=== PATIENT | male | born 1970 | race Caucasian/White ===

== ENCOUNTER 2016-08-30 18:51 | Emergency (ER) | payer OTHER, MEDICAID ==
[2016-08-30 19:11] VITALS: TEMP 98.2; O2SAT 94
[2016-08-30 19:57] LABS: COLOR YELLOW; LEUKOCYTE ESTERASE,URINE NEGATIVE (NEGATIVE); NITRITE,URINE NEGATIVE (NEGATIVE)
[2016-08-30 20:00] LABS: MUCUS TRACE /lpf (NONE-1+)
[2016-08-30 20:04] LABS: % IMMATURE GRANULYOCYTES 0.3 % (0.0-1.1); ABSOLUTE IMMATURE GRANULOCYTES 0.02 10^3/uL (0.00-0.10); ADD DIFF? NO; ADD MORPH? NO; ADD SCAN? NO; ATYPICAL LYMPHOCYTE FLAG 10 (0-99); FRAGMENT RBC FLAG 0 (0-99); HEMATOCRIT 40.6 % (40.0-51.0); HEMOGLOBIN 13.7 g/dL (13.7-17.5); LEFT SHIFT FLG 0 (0-99); LIPEMIA HEMOLYSIS FLAG 80 (0-99); MEAN CELL HEMOGLOBIN 29.9 pg (27.9-34.1); MEAN CELL HEMOGLOBIN CONCENTR. 33.7 g/dL (32.4-36.7); MEAN CELL VOLUME 88.6 fL (81.5-99.8); MEAN PLATELET VOLUME 12.1 fL (8.7-11.7); PLATELET CLUMPS FLAG 40 (0-99); PLATELET COUNT 123 10^3/uL (150-400); RED BLOOD CELL COUNT 4.58 10^6/uL (4.40-6.38); RED CELL DISTRIBUTION WIDTH 13.4 % (11.5-15.2)
--- NOTE | 2016-08-30 20:15 | EDPHY ---
H & P Time Seen by Provider: 08/30/16 19:35 HPI/ROS: HPI Hands and feet swollen. 46-year-old male by private vehicle. He is currently a resident at [facility]. Multiple medical problems and psychiatric problems. Presents the emergency department complaining of swelling in his hands legs feet and body and 26 lb weight gain over the last 2 weeks. No change in medications. He reports that he has had intermittent sharp knife-like frontal headaches over the last month which come on gradually and then go away within about 20 seconds. He denies headache currently. He otherwise denies any other complaints. ROS: Constitutional: No fever, no chills. No weakness. Eyes: No discharge. No changes in vision. ENT: No sore throat. No nasal congestion or rhinorrhea. Respiratory: No cough. No shortness of breath. Cardiac: No chest pain, no palpitations. Gastrointestinal: No abdominal pain, no vomiting, no diarrhea. Genitourinary: No hematuria. No dysuria or increased frequency with urination. Musculoskeletal: No back pain. No neck pain. No myalgias or arthralgias. Skin: No rashes. Neurological: No headache. No focal weakness or altered sensation. Past medical history: Schizoaffective disorder, traumatic brain brain injury, prior suicide attempt, chronic pain with narcotic abuse and dependency, chronic pancreatitis, chronic cholecystitis. Social history: History of alcohol abuse per reports he has not had a drink of alcohol in months since being a resident of [facility]. Smoker. Here by himself. Physical Exam: General Appearance: Alert, no distress. Large man, moderately obese. This patient is responding to questions appropriately and in full sentences. This patient appears well-hydrated and well-nourished. Eyes: Pupils equal and round no pallor or injection. No lid edema, erythema or injection. Respiratory: There are no retractions, lungs are clear to auscultation with good air movement bilaterally. Cardiovascular: Regular rate and rhythm. No murmur. Gastrointestinal: Abdomen is soft and nontender, moderately obese habitus no masses, bowel sounds normal. No focal tenderness at McBurney's point. No Nash sign. Neurological: Motor sensory function is grossly intact. Cranial nerves are normal. Gait is normal. Skin: Warm and dry, no rashes. Musculoskeletal: Neck is supple and nontender. Extremities are symmetrical. Symmetrical nonpitting edema in the bilateral lower extremities and hands. This does not appear to be acute. All joints range without pain or impingement. Psychiatric: No agitation. No depression. Database: EKG: Imaging: Chest x-ray PA and lateral; the cardiac mediastinal silhouette is unremarkable. No evidence of infiltrate or pneumothorax. No acute cardiopulmonary disease process noted. Interpreted by me. Procedures: Emergency department course: IV placed, urine sample obtained. Appropriate blood work sent. Patient has a history of narcotic pain medication addiction and dependency. He of course is asking for pain medications. We will hold these at this time. Laboratory work reviewed. His liver function profile and albumin are normal. He is not spilling protein in his urine. He is not anemic. His chest x-ray does not show any evidence of heart failure. 8:55 p.m., patient re-evaluated. Vital signs have been reviewed. Results of laboratory work urinalysis and chest x-ray discussed with him. I discussed follow-up through his primary care physician for an outpatient echocardiogram. I also discussed consideration of putting him on Lasix. I do not feel this is needed emergently though. He feels comfortable with this plan. Return to emergency department precautions were thoroughly reviewed with him. All of his questions were answered. He was discharged in good condition. Differential Diagnosis: The differential diagnosis on this patient includes but is not limited to anemia , nephrotic syndrome, renal failure, liver failure, obesity secondary to poor diet. This represents a partial list of diagnoses considered. These considerations are based on history, physical exam, past history, reassessment and diagnostic testing. Smoking Status: Heavy smoker Constitutional: Initial Vital Signs Temperature (C) 36.8 C 08/30/16 19:09 Heart Rate 89 08/30/16 19:09 Respiratory Rate 22 H 08/30/16 19:09 Blood Pressure 167/101 H 08/30/16 19:09 O2 Sat (%) 94 08/30/16 19:09 O2 Delivery Mode Room Air Allergies/Adverse Reactions: haloperidol [From Haldol] Allergy (Severe, Verified 08/09/16 14:38) TONGUE SWELLING haloperidol lactate [From Haldol] Allergy (Severe, Verified 08/09/16 14:38) TONGUE SWELLING naproxen Allergy (Severe, Verified 08/09/16 14:38) adhesive tape Allergy (Verified 08/09/16 14:38) ibuprofen [From Motrin] Allergy (Verified 08/09/16 14:38) iodine Allergy (Verified 08/09/16 14:38) lactose Allergy (Verified 08/09/16 14:38) lithium Allergy (Verified 08/09/16 14:38) Home Medications: Medication Instructions Recorded Gabapentin [Neurontin 400 MG (*)] 800 mg PO TID #30 cap 02/08/16 Lipase/Protease/Amylase [Pancreaze 1 cap PO TIDMEAL #30 cap 02/08/16 16.8] Ondansetron Odt [Zofran Odt 4 mg 4 mg PO Q4 PRN #15 tab 02/08/16 (*)] Acetaminophen [Tylenol 325mg (*)] 650 mg PO Q6 PRN 04/03/16 Docusate Sodium [Colace 100 MG (*)] 100 mg PO BID 04/03/16 Cyclobenzaprine 5 mg PO BID 08/09/16 Depakote 750 mg PO HS 08/09/16 Divalproex [Depakote] 500 mg PO DAILY AT 6AM 08/09/16 Hydroxyzine HCl 25 mg PO Q8H PRN 08/09/16 OLANZapine 15 mg PO HS 08/09/16 Pregabalin [Lyrica 50mg (*)] 100 mg PO TID 08/09/16 Zyprexa 5 mg PO DAILY 08/09/16 clonazePAM [klonoPIN (*)] 0.5 mg PO BID 08/09/16 oxyCODONE IR [Oxycodone Ir (*)] 10 mg PO Q6H PRN 08/09/16 Medical Decision Making - Data Points Laboratory Results: Laboratory Results 08/30/16 19:51 08/30/16 19:51 08/30/16 08/30/16 08/30/16 20:30 19:51 19:20 WBC 6.55 10^3/uL (3.80-9.50) RBC 4.58 10^6/uL (4.40-6.38) Hgb 13.7 g/dL (13.7-17.5) Hct 40.6 % (40.0-51.0) MCV 88.6 fL (81.5-99.8) MCH 29.9 pg (27.9-34.1) MCHC 33.7 g/dL (32.4-36.7) RDW 13.4 % (11.5-15.2) Plt Count 123 L 10^3/uL (150-400) MPV 12.1 H fL (8.7-11.7) Neut % (Auto) 62.4 % (39.3-74.2) Lymph % (Auto) 20.9 % (15.0-45.0) [place] % (Auto) 11.9 % (4.5-13.0) Eos % (Auto) 4.0 % (0.6-7.6) Baso % (Auto) 0.5 % (0.3-1.7) Nucleat RBC Rel Count 0.0 % (0.0-0.2) Absolute Neuts (auto) 4.09 10^3/uL (1.70-6.50) Absolute Lymphs (auto) 1.37 10^3/uL (1.00-3.00) Absolute Monos (auto) 0.78 10^3/uL (0.30-0.80) Absolute Eos (auto) 0.26 10^3/uL (0.03-0.40) Absolute Basos (auto) 0.03 10^3/uL (0.02-0.10) Absolute Nucleated RBC 0.00 10^3/uL (0-0.01) Immature Gran % 0.3 % (0.0-1.1) Immature Gran # 0.02 10^3/uL (0.00-0.10) PT 13.0 SEC (12.0-15.0) INR 0.99 (0.83-1.16) APTT 25.0 SEC (23.0-38.0) Sodium 141 mEq/L (134-144) Potassium 4.8 mEq/L (3.5-5.2) Chloride 104 mEq/L (97-110) Carbon Dioxide 27 mEq/l (22-31) Anion Gap 10 mEq/L (8-16) BUN 17 mg/dL (7-23) Creatinine 1.0 mg/dL (0.7-1.3) Estimated GFR > 60 Glucose 93 mg/dL (70-100) Calcium 9.2 mg/dL (8.5-10.4) Total Bilirubin 0.7 mg/dL (0.1-1.4) Conjugated Bilirubin 0.1 mg/dL (0.0-0.5) Unconjugated Bilirubin 0.6 mg/dL (0.0-1.1) AST 61 H IU/L (17-59) ALT 67 IU/L (21-72) Alkaline Phosphatase 47 IU/L (38-126) Total Protein 6.5 g/dL (6.3-8.2) Albumin 3.5 g/dL (3.5-5.0) Urine Color YELLOW Urine Appearance CLEAR Urine pH 7.0 (5.0-7.5) Ur Specific [place] 1.015 (1.002-1.030) Urine Protein NEGATIVE (NEGATIVE) Urine Ketones NEGATIVE (NEGATIVE) Urine Blood NEGATIVE (NEGATIVE) Urine Nitrate NEGATIVE (NEGATIVE) Urine Bilirubin NEGATIVE (NEGATIVE) Urine Urobilinogen NEGATIVE EU (0.2-1.0) Ur Leukocyte Esterase NEGATIVE (NEGATIVE) Urine RBC 1-3 /hpf (0-3) Urine WBC 1-3 /hpf (0-3) Ur Epithelial Cells NONE SEEN /lpf (NONE-1+) Urine Mucus TRACE /lpf (NONE-1+) Ur Culture Indicated? NOT INDICATED (NI) Urine Glucose NEGATIVE (NEGATIVE) Departure - Departure Disposition: Home, Routine, Self-Care Clinical Impression: Recent weight gain, Swollen hands and feet Condition: Good Instructions: Edema (ED) Additional Instructions: Read and follow provided instructions. Follow-up with your primary care physician through [facility] in 1-2 days for re- evaluation. Discuss prescription for Lasix which is a diuretic. Discuss having an outpatient echocardiogram arranged through your primary care physician. Avoid fatty and salty foods. Return to the emergency department for worsening symptoms or other serious concerns. Referrals: Carri Prakash PA [Primary Care Provider] - As per Instructions
[2016-08-30 20:26] LABS: ALANINE AMINOTRANSFERASE 67 IU/L (21-72); ALBUMIN 3.5 g/dL (3.5-5.0); ALKALINE PHOSPHATASE 47 IU/L (38-126); ANION GAP 10 mEq/L (8-16); ASPARTATE AMINOTRANSFERASE 61 IU/L (17-59); BILIRUBIN,TOTAL 0.7 mg/dL (0.1-1.4); BILIRUBIN-CONJUGATED 0.1 mg/dL (0.0-0.5); BILIRUBIN-UNCONJUGATED 0.6 mg/dL (0.0-1.1); CALCIUM 9.2 mg/dL (8.5-10.4); CARBON DIOXIDE 27 mEq/l (22-31); CHLORIDE 104 mEq/L (97-110); GLOMERULAR FILTRATION RATE > 60; GLUCOSE 93 mg/dL (70-100); POTASSIUM 4.8 mEq/L (3.5-5.2); SODIUM 141 mEq/L (134-144); TOTAL PROTEIN 6.5 g/dL (6.3-8.2)
[2016-08-30 20:44] LABS: INR 0.99 (0.83-1.16)
--- NOTE | 2016-08-30 20:50 | DX ---
PA and lateral chest. August 30, 2016. Clinical History: Dyspnea. Comparison Study: April 05, 2016.. Findings: The lungs are clear. No pleural disease identified. Heart size is normal. Visualized osseous structures appear normal. Impression: Normal chest.
[2016-08-30 21:11] VITALS: BP 162/100; PULSE 82; RESP 20
[2016-08-30] MEDS ORDERED: NICOTINE POLACRILEX 2 MG GUM B PRN (21:51)
[2016-08-30] MEDS ORDERED: NICOTINE POLACRILEX 2 MG GUM B ONE (21:52)
== END 2016-08-30 22:36 | disposition home or self-care (01) ==
LOC: EDUNIT#
DX: M79.89 Other specified soft tissue disorders (principal); R63.5 Abnormal weight gain; F17.200 Nicotine dependence, unspecified, uncomplicated

== ENCOUNTER 2016-09-02 19:21 | Emergency (ER) | payer OTHER, MEDICAID ==
[2016-09-02] MEDS ORDERED: LORazepam 1 MG TAB PO ONE (19:36)
[2016-09-02] MEDS ORDERED: LORazepam 1 MG TAB ONE (19:37)
[2016-09-02] MEDS ORDERED: NS 1,000 ML IV ONE (19:48)
[2016-09-02 19:56] LABS: COLOR YELLOW; LEUKOCYTE ESTERASE,URINE NEGATIVE (NEGATIVE); NITRITE,URINE NEGATIVE (NEGATIVE)
--- NOTE | 2016-09-02 19:56 | EDPHY ---
H & P Stated Complaint: SI/HI AFTER MED CHANGES, ALSO C/O OF ABD PAIN AND DIARRHEA Source: Patient, RN/MD Exam Limitations: No limitations - Personal History Current Tetanus Diphtheria and Acellular Pertussis (TDAP): Yes Tetanus Vaccine Date: 2009 - Medical/Surgical History Hx Asthma: No Hx Chronic Respiratory Disease: No Hx Diabetes: No Hx Cardiac Disease: No Hx Renal Disease: No Hx Cirrhosis: No Hx Alcoholism: Yes Hx HIV/AIDS: No Hx Splenectomy or Spleen Trauma: No Other PMH: PMH- Agoraphobia, Bipolar, ADHD, Chronic pain, disc L5-S1, PANCREATITIS,ANXIETY, ETOH ABUSE,OPIOD DEPENDANCE, SCHIZOAFFECTIVE,INSOMNIA, NEUROPATHY,MUSCLE WEAKNESS, MUSCLE SPASM, TRAUMATIC BRAIN INJURY, right ankle repair. Liver failure - Social History Smoking Status: Heavy smoker Time Seen by Provider: 09/02/16 19:30 HPI/ROS: CHIEF COMPLAINT: Suicidal ideation HISTORY OF PRESENT ILLNESS: patient with extensive history of mental health illness, is mostly schizophrenia with paranoid delusions and auditory hallucinations. He, reports his medications "I have been jacked with," and feels that his medications are too low. He says today he told someone at his facility that he wanted to . He told him specifically that he wanted to get a cough kill himself because he is [employer]. He would not give any other details. He denies any taking other medications or drugs. He has no chest pain but does have this ongoing abdominal pain that is acutely worsened recently. No fevers or chills. Some diarrhea. No bloody stools or emesis. Ongoing psychiatric care is from [facility]. Resides in a fdc. No other associated complaints or modifying factors. reports an abnormal CT scan in the past, for which he is awaiting a colonoscopy but he does not know the diagnosis. REVIEW OF SYSTEMS: Ten systems reviewed and are negative unless otherwise noted in the HPI EXAMINATION General Appearance: Alert, no distress , unkempt Head: normocephalic, atraumatic Eyes: Pupils equal and round, no conjunctival pallor or injection, EOMs intact ENT, Mouth: Mucous membranes moist. Uvula midline. No lesions. Neck: Normal inspection, supple, non-tender Respiratory: Lungs are clear to auscultation . No rhonchi wheezing or consolidation Cardiovascular: Regular rate and rhythm Gastrointestinal: Abdomen obese. Soft With general tenderness. no tympany. No rigidity. Guarding in all quadrants. Pain out of proportion to examination Neurological: A&O, nonfocal, Skin: Warm and dry, no rash Extremities: Nontender, no pedal edema Psychiatric: Flat affect. Admits to auditory hallucinations and suicidal ideation. Wants to by getting a cough to kill him. DIFFERENTIAL DIAGNOSES: Including but not limited to Schizophrenia, paranoid delusions, suicidal ideation, abdominal pain, Colitis, diverticulitis MDM: 12:15 a.m. Paranoid schizophrenia with delusions and hallucinations. Suicidal ideation without a definitive plan. Laboratory studies are within normal limits. Was complaining of significant abdominal pain, thus we did obtain a CT scan of the abdomen and pelvis. Radiology deformities completely within normal limits with all structures visualized well. He has been resting comfortably and cooperative although he does exhibit suicidal ideation. He has been cleared for mental health evaluation we are awaiting their evaluation at this. 12:40 a.m. notify the [facility] case filler, Brad, There is recommendation is that we Uphold the mental health hold this time. He is attempting to get placement at a crisis stabilization Center. He will notify me of acceptance should that happen. Patient remains hemodynamically stable in no acute distress. 1:00 a.m. I have re-evaluated this patient. He remains stable and in no acute distress. He is very cooperative and pleasant during conversation. He is asking for Benadryl something to help him sleep and I have declined at this time. I prefer that he remained awake indication he is transferred for evaluation. He respect this decision and accepted without any combative behavior. He is resting comfortably and awaiting placement. 1:55am At this time, we are awaiting placement to [facility]. He remains calm and in no distress. At this time, Dr. Ortiz will assume care of the patient. Please see his note for final disposition. SUPERVISION: Patient was evaluated in conjunction with the supervising physician. Please see their note for details. (Vladimir Lamb) Constitutional: Initial Vital Signs Temperature (C) 36.8 C 09/02/16 19:41 Heart Rate 93 09/02/16 19:41 Respiratory Rate 16 09/02/16 19:41 Blood Pressure 135/80 H 09/02/16 19:41 O2 Sat (%) 92 09/02/16 19:41 O2 Delivery Mode Room Air Allergies/Adverse Reactions: haloperidol [From Haldol] Allergy (Severe, Verified 08/09/16 14:38) TONGUE SWELLING haloperidol lactate [From Haldol] Allergy (Severe, Verified 08/09/16 14:38) TONGUE SWELLING naproxen Allergy (Severe, Verified 08/09/16 14:38) adhesive tape Allergy (Verified 08/09/16 14:38) ibuprofen [From Motrin] Allergy (Verified 08/09/16 14:38) iodine Allergy (Verified 08/09/16 14:38) lactose Allergy (Verified 08/09/16 14:38) lithium Allergy (Verified 08/09/16 14:38) Home Medications: Medication Instructions Recorded Gabapentin [Neurontin 400 MG (*)] 800 mg PO TID #30 cap 02/08/16 Lipase/Protease/Amylase [Pancreaze 1 cap PO TIDMEAL #30 cap 02/08/16 16.8] Ondansetron Odt [Zofran Odt 4 mg 4 mg PO Q4 PRN #15 tab 02/08/16 (*)] Acetaminophen [Tylenol 325mg (*)] 650 mg PO Q6 PRN 04/03/16 Docusate Sodium [Colace 100 MG (*)] 100 mg PO BID 04/03/16 Cyclobenzaprine 5 mg PO BID 08/09/16 Depakote 750 mg PO HS 08/09/16 Divalproex [Depakote] 500 mg PO DAILY AT 6AM 08/09/16 Hydroxyzine HCl 25 mg PO Q8H PRN 08/09/16 OLANZapine 15 mg PO HS 08/09/16 Pregabalin [Lyrica 50mg (*)] 100 mg PO TID 08/09/16 Zyprexa 5 mg PO DAILY 08/09/16 clonazePAM [klonoPIN (*)] 0.5 mg PO BID 08/09/16 oxyCODONE IR [Oxycodone Ir (*)] 10 mg PO Q6H PRN 08/09/16 Medical Decision Making ED Course/Re-evaluation: 707: Patient here with worsening auditory hallucinations paranoia underlying schizophrenia has been evaluated and is pending go to a crisis stabilization unit. No acute events overnight he has been sleeping in the hallway most of the evening. At times he does have screaming behavior with hallucination. Patient signed over to Dr Zavala at 7am Shift change. Pending placement. ( Jose Alberto Ortiz) Other Provider: I assumed care of this patient Dr. Ortiz at 7:00 a.m.. The patient has been cooperative throughout my shift. He has not had any agitation. He has received all of his regularly scheduled medications. At 3:30 p.m. he is sleeping comfortably. Lungs are clear and heart is regular rate and rhythm. When awakened, he has no complaints or requests. Awaiting placement in a psychiatric facility. His care is transferred to Dr. Santos at 4:00 p.m. on September 03, 2016. (Khushboo Zavala) Accepted patient care from Dr. Khushboo Zavala patient has a history of schizophrenia and is currently paranoid and suicidal. He has been medically cleared prior to my arrival and is on a M1 hold. He has been evaluated and is awaiting psychiatric placement. 7:00 p.m. the patient has been re-evaluated by mental health. They would like to lift his hold. He disclosed to them that he simply became angry because they took his marijuana away from him. He denies being paranoid or suicidal. The facility who was caring for him early who will accept him back. He contracts for safety. (Nicho Santos) - Data Points Laboratory Results: Laboratory Results 09/02/16 20:40 09/02/16 20:10 Medications Given: Discontinued Medications Albuterol (Proventil Neb) 3 ml IH EDNOW ONE Stop: 09/03/16 09:48 Last Admin: 09/03/16 09:58 Dose: 3 ml Baclofen (Baclofen) 20 mg PO TID ONE Stop: 09/03/16 08:03 Last Admin: 09/03/16 09:00 Dose: 20 mg Baclofen (Baclofen) 20 mg PO EDNOW ONE Stop: 09/03/16 13:15 Last Admin: 09/03/16 14:26 Dose: 20 mg Clonazepam (Klonopin) 0.5 mg PO BID ONE Stop: 09/03/16 08:03 Last Admin: 09/03/16 09:01 Dose: 0.5 mg Diphenhydramine HCl (Benadryl) 50 mg PO EDNOW ONE Stop: 09/02/16 20:26 Last Admin: 09/02/16 20:29 Dose: 50 mg Hydromorphone HCl (Dilaudid) 1 mg IVP EDNOW ONE Stop: 09/02/16 20:49 Last Admin: 09/02/16 21:00 Dose: 1 mg Sodium Chloride (Ns) 1,000 mls @ 0 mls/hr IV ONCE ONE PRN Reason: Wide Open Stop: 09/02/16 19:49 Last Admin: 09/02/16 21:00 Dose: 1,000 mls Lorazepam (Ativan) 1 mg PO EDNOW ONE Stop: 09/02/16 19:37 Last Admin: 09/02/16 19:41 Dose: 1 mg Olanzapine (Zyprexa) 15 mg PO ONCE ONE Stop: 09/03/16 08:08 Last Admin: 09/03/16 09:01 Dose: Not Given Olanzapine (Zyprexa Zydis) 15 mg PO EDNOW ONE Stop: 09/03/16 09:04 Last Admin: 09/03/16 09:03 Dose: 15 mg Oxycodone HCl (Oxycodone Ir) 10 mg PO QID ONE Stop: 09/03/16 08:35 Last Admin: 09/03/16 09:02 Dose: 10 mg Oxycodone HCl (Oxycontin) 10 mg PO ONCE ONE Stop: 09/03/16 13:15 Last Admin: 09/03/16 14:26 Dose: 10 mg Pregabalin (Lyrica) 100 mg PO EDNOW ONE Stop: 09/03/16 13:16 Last Admin: 09/03/16 14:27 Dose: 100 mg Pregabalin (Lyrica) 100 mg PO EDNOW ONE Stop: 09/03/16 14:01 Last Admin: 09/03/16 14:27 Dose: Not Given Departure - Departure Disposition: Home, Routine, Self-Care Clinical Impression: Polysubstance abuse Schizophrenia Qualifiers: Schizophrenia type: unspecified Qualifier Code: (F20.9) Schizophrenia, unspecified Condition: Good Instructions: Schizophrenia (ED) Referrals: NONE *PRIMARY CARE P,. [Primary Care Provider] - As per Instructions Isabella Ruiz MD [Medical Doctor] - As per Instructions
[2016-09-02] MEDS ORDERED: diphenhydrAMINE 25 MG CAP PO ONE ×2 (20:15→20:25)
[2016-09-02] MEDS ORDERED: HYDROmorphONE/DILAUDID 1 MG/ML SYR ONE (20:43)
[2016-09-02 20:46] LABS: ANION GAP 11 mEq/L (8-16); CALCIUM 8.7 mg/dL (8.5-10.4); CARBON DIOXIDE 28 mEq/l (22-31); CHLORIDE 107 mEq/L (97-110); CREATININE 1.2 mg/dL (0.7-1.3); ETHANOL SERUM < 10 mg/dL (0-10); GLOMERULAR FILTRATION RATE > 60; GLUCOSE 78 mg/dL (70-100); POTASSIUM 4.6 mEq/L (3.5-5.2); SALICYLATE < 1.0 mg/dL (2.0-20.0); SODIUM 146 mEq/L (134-144)
[2016-09-02] MEDS ORDERED: HYDROmorphONE/DILAUDID 1 MG/ML SYR IVP ONE (20:48)
[2016-09-02 20:51] LABS: ABSOLUTE IMMATURE GRANULOCYTES 0.07 10^3/uL (0.00-0.10); ADD DIFF? NO; ADD MORPH? NO; ADD SCAN? NO; ATYPICAL LYMPHOCYTE FLAG 20 (0-99); FRAGMENT RBC FLAG 0 (0-99); HEMATOCRIT 41.1 % (40.0-51.0); LEFT SHIFT FLG 0 (0-99); LIPEMIA HEMOLYSIS FLAG 90 (0-99); MEAN CELL HEMOGLOBIN 30.2 pg (27.9-34.1); MEAN CELL HEMOGLOBIN CONCENTR. 34.1 g/dL (32.4-36.7); MEAN CELL VOLUME 88.8 fL (81.5-99.8); PLATELET CLUMPS FLAG 30 (0-99); PLATELET COUNT 148 10^3/uL (150-400); RED BLOOD CELL COUNT 4.63 10^6/uL (4.40-6.38); RED CELL DISTRIBUTION WIDTH 13.8 % (11.5-15.2)
[2016-09-02] MEDS ORDERED: IOPAMIDOL (ISOVUE-300) 100 ML BTL IV ONE (21:03)
--- NOTE | 2016-09-02 22:17 | CT ---
CT Scan of the Abdomen and Pelvis, With Contrast Indication: Abdominal pain, evaluate for possible small bowel obstruction. Technique: Multidetector CT images of the abdomen and pelvis were obtained. During initial contrast injection the IV malfunctioned, and the study was performed essentially without intravenous contrast . Axial images are obtained at 5-mm intervals and reformatted at 1.5-mm thickness. The examination is reviewed on the workstation at multiple window/level settings. Sagittal and coronal reformations are performed. Dose reduction techniques were utilized for this examination. Comparison: Comparison to previous CT abdomen and pelvis of November 21, 2015. Abdomen Lung bases: Clear, with no infiltrate or atelectasis. No pleural fluid. Liver: Normal. Biliary system: The gallbladder is surgically absent. No biliary ductal dilatation is identified. Spleen: Normal. Pancreas: Normal. Adrenals: Normal. Kidneys: No obstruction or solid masses. There is a trace of contrast seen in the collecting system s bilaterally from the small initial contrast injection. The ureters are normal bilaterally. Abdominal Aorta: Scattered minimal calcified aortic plaque formation is seen, with no aneurysm ident ified. No bowel obstruction, ascites, or retroperitoneal lymphadenopathy. CT Pelvis Findings: A normal appendix is identified. There is no small bowel obstruction. No free air is seen, and there is no free fluid identified. Minimal spinal degenerative changes are noted. Impressions 1. CT scan of the abdomen and pelvis negative for acute abnormality, specifically negative for small bowel obstruction. 2. See above report for additional findings. A preliminary report was called to Vladimir Lamb PA-C, at 2200 hours in the Emergency Department. E:amm
[2016-09-02] MEDS ORDERED: oxyCODONE IR 5 MG TAB ONE (23:44)
[2016-09-03] MEDS ORDERED: BACLOFEN 20 MG TAB PO ONE ×3 (08:02→18:53)
[2016-09-03] MEDS ORDERED: clonazePAM 0.5 MG TAB PO ONE ×3 (08:02→20:09)
[2016-09-03] MEDS ORDERED: hydrOXYzine HCL 25 MG TAB PO PRN (08:02)
[2016-09-03] MEDS ORDERED: OLANZapine 2.5 MG TAB PO ONE (08:07)
[2016-09-03] MEDS ORDERED: OLANZapine DISINTEGR 10 MG TAB ONE (08:28)
[2016-09-03] MEDS ORDERED: OLANZapine DISINTEGR 5 MG TAB ONE (08:29)
[2016-09-03] MEDS ORDERED: oxyCODONE IR 5 MG TAB PO ONE (08:34)
[2016-09-03] MEDS ORDERED: oxyCODONE IR 5 MG TAB ONE ×2 (08:35→19:47)
[2016-09-03] MEDS ORDERED: DIVALPROEX ER 500 MG TAB PO SCH (09:00)
[2016-09-03] MEDS: GABAPENTIN 400 MG CAP PO SCH ×2 (09:01→15:50)
[2016-09-03] MEDS: PREGABALIN 75 MG CAP PO SCH ×2 (09:02→15:50)
[2016-09-03] MEDS ORDERED: OLANZapine DISINTEGR 10 MG TAB PO ONE (09:03)
[2016-09-03 09:06] VITALS: O2SAT 94
[2016-09-03] MEDS ORDERED: ALBUTEROL 3 ML DEYVIAL IH ONE (09:47)
[2016-09-03] MEDS ORDERED: ALBUTEROL 3 ML DEYVIAL ONE (09:48)
[2016-09-03] MEDS ORDERED: PREGABALIN 75 MG CAP PO ONE ×2 (13:15→18:55)
[2016-09-03] MEDS ORDERED: PREGABALIN 50 MG CAP PO ONE (14:00)
[2016-09-03] MEDS ORDERED: GABAPENTIN 300 MG CAP ONE (15:43)
[2016-09-03] MEDS ORDERED: GABAPENTIN 100 MG CAP ONE (15:44)
[2016-09-03 15:58] VITALS: RESP 14
[2016-09-03] MEDS ORDERED: PREGABALIN 25 MG CAP PO SCH (19:30)
[2016-09-03 20:19] VITALS: BP 118/78; PULSE 80; TEMP 97.9
[2016-09-03] MEDS ORDERED: PREGABALIN 50 MG CAP PO SCH (22:00)
[2016-09-04] MEDS ORDERED: LURASIDONE HCL 20 MG TAB PO SCH (08:00)
[2016-09-04] MEDS ORDERED: LURASIDONE HCL 20 MG TAB PO ONE (18:54)
== END 2016-09-03 20:17 | disposition home or self-care (01) ==
LOC: EDUNIT#
DX: F20.9 Schizophrenia, unspecified (principal); F19.10 Other psychoactive substance abuse, uncomplicated; F17.200 Nicotine dependence, unspecified, uncomplicated
CPT/HCPCS: 74176; 96374; 99285; J1170; Q9967; 80305; G0480

== ENCOUNTER 2016-09-18 20:25 | Emergency (ER) | payer OTHER, MEDICAID ==
--- NOTE | 2016-09-18 20:34 | EDPHY ---
[id number], arriving via EMS from [place] complaining of poorly localized abdominal pain onset this morning. He has a history of chronic pain, opioid dependence, and schizophrenia and says he has been refusing his Depakote. He has associated nausea, diarrhea, and reduced appetite since symptom onset this morning. He states this pain is different than previous presentations because "it goes more to my back." He was not cooperative for EMS and refused an IV. REVIEW OF SYSTEMS: Aside from elements discussed in the HPI, a comprehensive 10-point review of systems was reviewed and is negative. PMH: Schizophrenia, TBI, Hepatitis C, neuropathy, anxiety, back pain, opioid dependence SOCIAL HISTORY: Lives at [place], alcohol abuse Prior medical records reviewed including admission 04/03/16 for abdominal pain and ED visit 09/02/16 for similar symptoms. An abdominal CT at that time was negative for anything acute. PHYSICAL EXAM: General:Patient is alert, in no acute distress. ENT:Eyes are normal to inspection. ENT inspection normal. Neck: Normal inspection. Full range of motion. Respiratory:No respiratory distress. Breath sounds normal bilaterally. Cardiovascular: Regular rate and rhythm. Strong peripheral pulses. Normal cap refill. Abdomen:The abdomen is nontender to palpation. There are no peritoneal signs. There are normal bowel sounds. Back: Normal to inspection. No tenderness to palpation. Skin: Normal color. No rash. Warm and dry. Extremities: Normal appearance. Full range of motion. Neuro: Oriented x3. Normal motor function. Normal sensory function. ED Course: Plan for IV, labs including CBC, CHEM, LFT, lipase. UA ordered. 2113: Patient did not want to have anyone attempt to draw blood a 3rd time or wait for discharge and walked out of the department. MDM: This patient is well-known to the ED and returns with complaint of abdominal pain. Shortly after arrival he attempted to leave the department. The patient does not arrive with any paperwork or declaration that he is on a legal hold. He appears to have decisional capacity, so I do not feel that I can restrain him against his will. General Time Seen by Provider: 09/18/16 20:25 Initial Vital Signs: Initial Vital Signs Temperature (C) 36.5 C 09/18/16 20:32 Heart Rate 73 09/18/16 20:32 Respiratory Rate 18 09/18/16 20:32 Blood Pressure 127/81 H 09/18/16 20:32 O2 Sat (%) 92 09/18/16 20:32 O2 Delivery Mode Room Air Allergies/Adverse Reactions: haloperidol [From Haldol] Allergy (Severe, Verified 08/09/16 14:38) TONGUE SWELLING haloperidol lactate [From Haldol] Allergy (Severe, Verified 08/09/16 14:38) TONGUE SWELLING naproxen Allergy (Severe, Verified 08/09/16 14:38) adhesive tape Allergy (Verified 08/09/16 14:38) ibuprofen [From Motrin] Allergy (Verified 08/09/16 14:38) iodine Allergy (Verified 08/09/16 14:38) lactose Allergy (Verified 08/09/16 14:38) lithium Allergy (Verified 08/09/16 14:38) Home Medications: Medication Instructions Recorded Gabapentin [Neurontin 400 MG (*)] 800 mg PO TID #30 cap 02/08/16 Lipase/Protease/Amylase [Pancreaze 1 cap PO TIDMEAL #30 cap 02/08/16 16.8] Ondansetron Odt [Zofran Odt 4 mg 4 mg PO Q4 PRN #15 tab 02/08/16 (*)] Acetaminophen [Tylenol 325mg (*)] 650 mg PO Q6 PRN 04/03/16 Docusate Sodium [Colace 100 MG (*)] 100 mg PO BID 04/03/16 Cyclobenzaprine 5 mg PO BID 08/09/16 Depakote 750 mg PO HS 08/09/16 Divalproex [Depakote] 500 mg PO DAILY AT 6AM 08/09/16 Hydroxyzine HCl 25 mg PO Q8H PRN 08/09/16 OLANZapine 15 mg PO HS 08/09/16 Pregabalin [Lyrica 50mg (*)] 100 mg PO TID 08/09/16 Zyprexa 5 mg PO DAILY 08/09/16 clonazePAM [klonoPIN (*)] 0.5 mg PO BID 08/09/16 oxyCODONE IR [Oxycodone Ir (*)] 10 mg PO Q6H PRN 08/09/16 Departure - Departure Disposition: Against Medical Advice Clinical Impression: Chronic abdominal pain Condition: Good Instructions: Chronic Abdominal Pain (ED) Additional Instructions: Follow up with your primary care provider for symptoms not improved over the next 2-3 days. Referrals: Patient,NotPresent [Unknown] - As per Instructions [facility] [Outside] - As per Instructions Report Scribed for: Spenser Blackburn Report Scribed by: Chante Baird Date of Report: 09/18/16 Time of Report: 20:34 Physician Review and Approval Statement: Portions of this note were transcribed by an ED scribe. I personally performed the history, physical exam, and medical decision making; and confirm the accuracy of the information in the transcribed note.
[2016-09-18 20:35] VITALS: BP 127/81; PULSE 73; RESP 18; TEMP 97.7; O2SAT 92
== END 2016-09-18 21:20 | disposition left against medical advice (07) ==
LOC: EDUNIT#
DX: R10.9 Unspecified abdominal pain (principal); G89.29 Other chronic pain

== ENCOUNTER 2016-11-22 00:16 | Inpatient (IN) | payer OTHER, MEDICAID ==
[2016-11-22] MEDS ORDERED: NS 1,000 ML IV ONE (00:22)
[2016-11-22] MEDS ORDERED: ONDANSETRON 4 MG/2 ML VIAL IVP ONE (00:22)
--- NOTE | 2016-11-22 00:24 | EDPHY ---
H & P Time Seen by Provider: 11/22/16 00:19 HPI/ROS: HPI The patient presents brought in by ambulance from [place], for left upper quadrant abdominal pain which began earlier this evening, started slowly and got progressively worse, is currently rated at 8/10. It is associated with loose bowel movements and some nausea. It feels like his prior episodes of pancreatitis. Upon review of records, he has been here multiple times for this and has had a normal CT scan within the last few months. Last time he was seen in September he left from the emergency room prior to lab testing being performed. He is status post cholecystectomy and has stopped taking his Depakote because of concern that this was causing his recurrent episodes of pancreatitis. REVIEW OF SYSTEMS Constitutional: No fever, no chills. Eyes: No discharge. ENT: No sore throat. Cardiovascular: No chest pain, no palpitations. Respiratory: No cough, no shortness of breath. Gastrointestinal: See HPI Genitourinary: No hematuria. Musculoskeletal: No back pain. Skin: No rashes. Neurological: No headache. PMHx: History of pancreatitis, status post cholecystectomy Soc Hx: History of alcohol abuse PHYSICAL General Appearance: Alert, no distress Eyes: Pupils equal and round no pallor or injection ENT, Mouth: Mucous membranes moist Respiratory: There are no retractions, lungs are clear to auscultation Cardiovascular: Regular rate and rhythm Gastrointestinal: Abdomen is soft with tenderness in the left upper quadrant, no masses, bowel sounds normal Neurological: A&O, moves all extremities Skin: Warm and dry, no rashes Musculoskeletal: Neck is supple non tender Extremities: symmetrical, full range of motion Psychiatric: Patient is oriented X 3, there is no agitation Source: Patient, EMS - Personal History Tetanus Vaccine Date: 2009 - Medical/Surgical History Hx Asthma: No Hx Chronic Respiratory Disease: No Hx Diabetes: No Hx Cardiac Disease: No Hx Renal Disease: No Hx Cirrhosis: No Hx Alcoholism: Yes Hx HIV/AIDS: No Hx Splenectomy or Spleen Trauma: No Other PMH: PMH- Agoraphobia, Bipolar, ADHD, Chronic pain, disc L5-S1, PANCREATITIS,ANXIETY, ETOH ABUSE,OPIOD DEPENDANCE, SCHIZOAFFECTIVE,INSOMNIA, NEUROPATHY,MUSCLE WEAKNESS, MUSCLE SPASM, TRAUMATIC BRAIN INJURY, right ankle repair. Liver failure - Social History Smoking Status: Heavy smoker Constitutional: Initial Vital Signs Temperature (C) 36.6 C 11/22/16 00:23 Heart Rate 80 11/22/16 00:23 Respiratory Rate 16 11/22/16 00:23 Blood Pressure 142/73 H 11/22/16 00:23 O2 Sat (%) 96 11/22/16 00:23 O2 Delivery Mode Nasal Cannula O2 (L/minute) 2 Allergies/Adverse Reactions: haloperidol lactate [From Haldol] Allergy (Severe, Verified 11/22/16 00:22) TONGUE SWELLING naproxen Allergy (Severe, Verified 11/22/16 00:22) adhesive tape Allergy (Verified 11/22/16 00:22) ibuprofen [From Motrin] Allergy (Verified 11/22/16 00:22) iodine Allergy (Verified 11/22/16 00:22) lactose Allergy (Verified 11/22/16 00:22) lithium Allergy (Verified 11/22/16 00:22) Home Medications: Medication Instructions Recorded Gabapentin [Neurontin 400 MG (*)] 800 mg PO TID #30 cap 02/08/16 Lipase/Protease/Amylase [Pancreaze 1 cap PO TIDMEAL #30 cap 02/08/16 16.8] Ondansetron Odt [Zofran Odt 4 mg 4 mg PO Q4 PRN #15 tab 02/08/16 (*)] Acetaminophen [Tylenol 325mg (*)] 650 mg PO Q6 PRN 04/03/16 Docusate Sodium [Colace 100 MG (*)] 100 mg PO BID 04/03/16 Cyclobenzaprine 5 mg PO BID 08/09/16 Depakote 750 mg PO HS 08/09/16 Divalproex [Depakote] 500 mg PO DAILY AT 6AM 08/09/16 Hydroxyzine HCl 25 mg PO Q8H PRN 08/09/16 OLANZapine 15 mg PO HS 08/09/16 Pregabalin [Lyrica 50mg (*)] 100 mg PO TID 08/09/16 Zyprexa 5 mg PO DAILY 08/09/16 clonazePAM [klonoPIN (*)] 0.5 mg PO BID 08/09/16 oxyCODONE IR [Oxycodone Ir (*)] 10 mg PO Q6H PRN 08/09/16 Ondansetron Odt [Zofran Odt 4 mg 4 mg PO Q4 PRN #10 tab 11/22/16 (*)] Medical Decision Making - Diagnostics Imaging: CT abdomen pelvis with IV contrast demonstrates some inflammatory changes at the head of the pancreas, discussed Dr. Abrams of Radiology. Differential Diagnosis: This is a 46-year-old man with past psychiatric history, also history of pancreatitis, status post cholecystectomy who presents brought in by ambulance for abdominal pain which started tonight. It feels like his prior episodes of pancreatitis, it is unclear what the precipitating factor is here. He does have a history of medication seeking behavior. Differential diagnosis includes acute pancreatitis, gastroenteritis, opiate withdrawal. In the emergency room patient was given IV fluids, famotidine, Toradol, ketamine with marginal improvement in his symptoms. Labs were checked and did show elevated lipase, remainder of labs were normal. Because of ongoing pain, patient did not feel comfortable going home. I plan to admit him to the hospitalist service and have discussed the case with Dr. Mona Corea. I have explained to the patient that we cannot give him ongoing opiate medications and he is okay with this. I have ordered a CT scan of his abdomen. - Data Points Laboratory Results: Laboratory Results 11/22/16 00:40 11/22/16 00:40 11/22/16 11/22/16 00:40 00:40 WBC 6.39 10^3/uL 10^3/uL (3.80-9.50) RBC 5.57 10^6/uL 10^6/uL (4.40-6.38) Hgb 16.1 g/dL g/dL (13.7-17.5) Hct 48.2 % % (40.0-51.0) MCV 86.5 fL fL (81.5-99.8) MCH 28.9 pg pg (27.9-34.1) MCHC 33.4 g/dL g/dL (32.4-36.7) RDW 13.2 % % (11.5-15.2) Plt Count 124 10^3/uL L 10^3/uL (150-400) MPV 12.0 fL H fL (8.7-11.7) Neut % (Auto) 52.2 % % (39.3-74.2) Lymph % (Auto) 36.0 % % (15.0-45.0) [place] % (Auto) 7.2 % % (4.5-13.0) Eos % (Auto) 3.9 % % (0.6-7.6) Baso % (Auto) 0.5 % % (0.3-1.7) Nucleat RBC Rel Count 0.0 % % (0.0-0.2) Absolute Neuts (auto) 3.34 10^3/uL 10^3/uL (1.70-6.50) Absolute Lymphs (auto) 2.30 10^3/uL 10^3/uL (1.00-3.00) Absolute Monos (auto) 0.46 10^3/uL 10^3/uL (0.30-0.80) Absolute Eos (auto) 0.25 10^3/uL 10^3/uL (0.03-0.40) Absolute Basos (auto) 0.03 10^3/uL 10^3/uL (0.02-0.10) Absolute Nucleated RBC 0.00 10^3/uL 10^3/uL (0-0.01) Immature Gran % 0.2 % % (0.0-1.1) Immature Gran # 0.01 10^3/uL 10^3/uL (0.00-0.10) Sodium 142 mEq/L mEq/L (134-144) Potassium 4.5 mEq/L mEq/L (3.5-5.2) Chloride 105 mEq/L mEq/L (97-110) Carbon Dioxide 25 mEq/l mEq/l (22-31) Anion Gap 12 mEq/L mEq/L (8-16) BUN 20 mg/dL mg/dL (7-23) Creatinine 1.3 mg/dL mg/dL (0.7-1.3) Estimated GFR 60 Glucose 88 mg/dL mg/dL (70-100) Calcium 9.8 mg/dL mg/dL (8.5-10.4) Total Bilirubin 1.0 mg/dL mg/dL (0.1-1.4) Conjugated Bilirubin 0.5 mg/dL mg/dL (0.0-0.5) Unconjugated Bilirubin 0.5 mg/dL mg/dL (0.0-1.1) AST 24 IU/L IU/L (17-59) ALT 31 IU/L IU/L (21-72) Alkaline Phosphatase 66 IU/L IU/L (38-126) Total Protein 7.6 g/dL g/dL (6.3-8.2) Albumin 4.6 g/dL g/dL (3.5-5.0) Lipase 1155.0 IU/L H IU/L (23-300) Medications Given: Discontinued Medications Diphenhydramine HCl (Benadryl Injection) 25 mg IVP EDNOW ONE Stop: 11/22/16 04:58 Last Admin: 11/22/16 05:04 Dose: 25 mg Famotidine (Pepcid) 20 mg IVP EDNOW ONE Stop: 11/22/16 01:46 Last Admin: 11/22/16 01:45 Dose: 20 mg Fentanyl (Sublimaze) 100 mcg IVP EDNOW ONE Stop: 11/22/16 04:19 Last Admin: 11/22/16 04:20 Dose: 100 mcg Sodium Chloride (Ns) 1,000 mls @ 0 mls/hr IV ONCE ONE PRN Reason: Wide Open Stop: 11/22/16 00:23 Last Admin: 11/22/16 00:54 Dose: 1,000 mls Ketamine HCl (Ketamine) 10 mg IVP EDNOW ONE Stop: 11/22/16 01:01 Last Admin: 11/22/16 01:00 Dose: 10 mg Ketamine HCl (Ketamine) 10 mg IVP EDNOW ONE Stop: 11/22/16 01:25 Last Admin: 11/22/16 01:31 Dose: 10 mg Ketamine HCl (Ketamine) 10 mg IVP EDNOW ONE Stop: 11/22/16 02:41 Last Admin: 11/22/16 02:45 Dose: 10 mg Ondansetron HCl (Zofran) 4 mg IVP EDNOW ONE Stop: 11/22/16 00:23 Last Admin: 11/22/16 00:54 Dose: 4 mg Departure - Departure Disposition: [facility] Inpatient Acute Clinical Impression: Pancreatitis, acute Qualifiers: Pancreatitis type: other Acute pancreatitis complication: unspecified Qualified Code(s): K85.80 - Other acute pancreatitis without necrosis or infection Condition: Good
[2016-11-22] MEDS ORDERED: KETAMINE 100 MG/10 ML SYR IVP ONE ×2 (01:00→01:06)
[2016-11-22 01:07] LABS: % IMMATURE GRANULYOCYTES 0.2 % (0.0-1.1); ABSOLUTE IMMATURE GRANULOCYTES 0.01 10^3/uL (0.00-0.10); ADD DIFF? NO; ADD MORPH? NO; ADD SCAN? NO; ALANINE AMINOTRANSFERASE 31 IU/L (21-72); ALBUMIN 4.6 g/dL (3.5-5.0); ALKALINE PHOSPHATASE 66 IU/L (38-126); ANION GAP 12 mEq/L (8-16); ASPARTATE AMINOTRANSFERASE 24 IU/L (17-59); ATYPICAL LYMPHOCYTE FLAG 0 (0-99); BILIRUBIN-CONJUGATED 0.5 mg/dL (0.0-0.5); BILIRUBIN-UNCONJUGATED 0.5 mg/dL (0.0-1.1); CALCIUM 9.8 mg/dL (8.5-10.4); CARBON DIOXIDE 25 mEq/l (22-31); CHLORIDE 105 mEq/L (97-110); CREATININE 1.3 mg/dL (0.7-1.3); FRAGMENT RBC FLAG 0 (0-99); GLOMERULAR FILTRATION RATE 60; GLUCOSE 88 mg/dL (70-100); HEMATOCRIT 48.2 % (40.0-51.0); HEMOGLOBIN 16.1 g/dL (13.7-17.5); LEFT SHIFT FLG 0 (0-99); LIPEMIA HEMOLYSIS FLAG 80 (0-99); MEAN CELL HEMOGLOBIN 28.9 pg (27.9-34.1); MEAN CELL HEMOGLOBIN CONCENTR. 33.4 g/dL (32.4-36.7); MEAN CELL VOLUME 86.5 fL (81.5-99.8); PLATELET CLUMPS FLAG 10 (0-99); PLATELET COUNT 124 10^3/uL (150-400); POTASSIUM 4.5 mEq/L (3.5-5.2); RED BLOOD CELL COUNT 5.57 10^6/uL (4.40-6.38); RED CELL DISTRIBUTION WIDTH 13.2 % (11.5-15.2); SODIUM 142 mEq/L (134-144); TOTAL PROTEIN 7.6 g/dL (6.3-8.2)
[2016-11-22] MEDS ORDERED: KETAMINE 500 MG/10 ML VIAL IVP ONE ×2 (01:24→02:40)
[2016-11-22] MEDS ORDERED: FAMOTIDINE 20 MG/2 ML SDV ONE (01:41)
[2016-11-22] MEDS ORDERED: FAMOTIDINE 20 MG/2 ML SDV IVP ONE (01:45)
[2016-11-22] MEDS ORDERED: fentaNYL 100 MCG/2 ML INJ ONE (04:16)
[2016-11-22] MEDS ORDERED: fentaNYL 100 MCG/2 ML INJ IVP ONE (04:18)
[2016-11-22] MEDS ORDERED: IOPAMIDOL (ISOVUE-300) 100 ML BTL IV ONE ×2 (04:50→04:59)
[2016-11-22] MEDS: NS 1,000 ML IV SCH ×2 (06:21→23:59)
--- NOTE | 2016-11-22 07:02 | GHP ---
[f rep st] HISTORY AND PHYSICAL DATE OF ADMISSION: 11/22/2016 CHIEF COMPLAINT: Left upper quadrant pain. HISTORY: The patient is a 46-year-old male who presents with severe left upper quadrant pain. This started last night around dinner and has steadily worsened, now an 8/10. He describes it as sharp, worse with eating, radiates to his back. It feels like his previous episodes of pancreatitis. He has had nausea and loose stool. PAST MEDICAL HISTORY: 1. Previous bouts of acute pancreatitis eventually leading to a cholecystectomy done last March, [facility] revealed a severely inflamed gallbladder with extensive adhesions to the colon, status post lap aroscopic cholecystectomy. 2. Chronic abdominal pain with extreme narcotic-seeking behavior. 3. Personality disorder. He was previously diagnosed with schizoaffective disorder and bipolar, ho jayce, per Dr. Apodaca on a recent inpatient psychiatric stay, she did not feel that he had these diagnoses and instead felt this was all malingering for narcotics, as well as an underlying personal ity disorder including histrionic borderline antisocial. 4. Traumatic brain injury. MEDICATIONS: Medication reconciliation from [facility] is pending. ALLERGIES: Haldol, adhesives, NSAIDs, iodine, lithium. SOCIAL HISTORY: He is a smoker. No alcohol. He lives at [facility]. Drugs in the past, but not c urrently. REVIEW OF SYSTEMS: Complete review of systems obtained. Review of systems is negative regarding co nstitutional, HEENT, GI, pulmonary, cardiovascular, , hematology, skin, musculoskeletal, endocrine , psych, except for positives and negatives as under HPI. FAMILY HISTORY: Reviewed, noncontributory to presenting complaint. PHYSICAL EXAMINATION: GENERAL: Well-developed, well-nourished male, in no acute distress. VITAL S IGNS: Temperature is 36.7, pulse 74, blood pressure 143/74, saturating 96% on room air. EYES: Abeba l conjunctivae. Pupils equal, reactive to light. ENT: Normal ears and nose. Hearing intact. Nor mal lips and teeth. Oropharynx moist. NECK: Trachea midline. No thyromegaly. CHEST: Normal res piratory effort. LUNGS: Clear to auscultation bilaterally. CARDIOVASCULAR: Regular rhythm. No m urmur. No lower extremity edema. ABDOMEN: Soft, quite tender in the left upper quadrant without r ebound or guarding. No hepatosplenomegaly. SKIN: Warm, dry, intact without rash. MUSCULOSKELETAL : No cyanosis or clubbing. Strength 5/5 upper and lower extremities. NEUROLOGIC: Cranial nerves in tact. Normal sensation to light touch. PSYCH: Alert and oriented x3. Normal mood and affect. No rmal judgment and normal memory. LABORATORY DATA: White count 6.39, hematocrit 48.2, platelets 124. Sodium 142, potassium 4.5, chlo ride 105, bicarb 25, BUN 20, creatinine 1.3, glucose 88. LFTs are negative. Lipase is 1133. This case was discussed with Dr. Fowler, emergency room physician. She did try an extended observa tion in the emergency room, but was unable to get him to go back to [facility]. CT scan of the abdo men and pelvis shows some possible stranding at the head of the pancreas. ASSESSMENT AND PLAN: 1. Left upper quadrant pain. He does have a mildly elevated lipase and some subtle stranding at th e head of his pancreas, so he may have an episode of recurrent mild pancreatitis. He does not drink alcohol. He did have a very significant chronic cholecystitis with severe inflammation found at [facility] with extensive adhesions. So I suspect he may have some residual anatomic changes that may le ad to some intermittent pancreatitis. With this, however, his LFTs are completely normal. So, I do not see any benefit of further imaging. This is very difficult as it is superimposed on a backgrou nd of chronic abdominal pain and narcotic-seeking behavior. Interestingly, however, he has not been readmitted to the hospital since he had this gallbladder taken out last March. Will start him on IV morphine. However, would rapidly deescalate away from narcotics as he improves. 2. Personality disorder. Need to clarify his medication regimen from [facility] once med reconcili ation is complete. Depakote was discontinued as there are case reports of pancreatitis with this ga dication. 3. Code status full. 4. Admission status: Will admit to observation as I anticipate rapid improvement from his very mild pancreatitis. 5. Deep vein thrombosis prophylaxis. He is high risk. Will place him on subcu Lovenox. /[id number]/MODL
[2016-11-22] MEDS: NICOTINE 21 MG/24 HR PATCH TD SCH (07:54)
[2016-11-22] MEDS: oxyCODONE IR 5 MG TAB PO PRN ×2 (07:54→12:17)
[2016-11-22] MEDS: ENOXAPARIN 40 MG/0.4 ML SYR SC SCH (07:54)
[2016-11-22] MEDS ORDERED: ALTEPLASE 2 MG VIAL IVP PRN (12:11)
[2016-11-22] MEDS ORDERED: morphINE 10 MG/0.5 ML UDSYR PO ONE (13:08)
[2016-11-22] MEDS ORDERED: HYDROmorphONE/DILAUDID 1 MG/ML SYR IVP PRN (13:11)
[2016-11-22] MEDS: BECLOMETHASONE QVAR 80 MDI IH SCH ×2 (13:36→20:31)
[2016-11-22] MEDS ORDERED: LORazepam 1 MG/0.5 ML UDSYR PO PRN (13:36)
--- NOTE | 2016-11-22 15:45 | HOSPPROG ---
Hospitalist Progress Note Assessment/Plan: # acute pancreatitis- confirmed on CT imaging at admission patient with epigastric pain- lipase 1155 with recent complicated history of cholelithiasis and cholecystectomy oxygen saturations 90% on room air - NPO - IV fluids - IV pain medication - consider ultrasound imaging for possible retained stone # complicated access- extensive time spent trying to establish IV access for this patient- unsuccessfully - PICC line ordered - will use Roxanol and Ativan liquid p.r.n. until axis re-established # personality disorder- patient on many complicated add depressive/sedating medications - holding p. o. meds currently but need to carefully review list - use IV Ativan to avoid benzodiazepine withdrawal # prophylaxis Lovenox # diet NPO secondary to pancreatitis # disposition greater than 2 midnights as the patient is presenting with acute pancreatitis requiring IV pain medications and IV fluids I have discussed case with the RN will use Roxanol and Ativan liquid temp early until PICC established Subjective: terrible pain Objective: Vital Signs Temp Pulse Resp BP Pulse Ox 36.8 C 47 L 16 100/53 L 90 L 11/22/16 12:55 11/22/16 12:55 11/22/16 12:55 11/22/16 12:55 11/22/16 12:55 11/21/16 11/22/16 11/23/16 05:59 05:59 05:59 Intake Total 1000 Output Total 400 Balance 1000 -400 - Physical Exam Constitutional: chronically ill appearing, unkempt Eyes: anicteric sclera Ears, Nose, Mouth, Throat: dry mucous membranes Cardiovascular: regular rate and rhythym Respiratory: no respiratory distress, no rales or rhonchi Gastrointestinal: normoactive bowel sounds, tenderness Genitourinary: no bladder fullness Skin: warm, normal color Musculoskeletal: No asymmetric calves Neurologic: No AAOx3 Psychiatric: depressed Lymph, Heme, Immunologic: no cervical LAD ICD10 Worksheet Patient Problems: Problems Problem Status Onset Pancreatitis, acute Acute Severe depressed bipolar I disorder without psychotic features Active Abdominal pain Acute Hypoventilation Acute Hypoxia Acute Opioid dependence Acute
[2016-11-22] MEDS: LORazepam 2 MG/ML INJ IVP PRN ×2 (17:56→22:11)
[2016-11-22] MEDS: HYDROmorphONE/DILAUDID 1 MG/ML SYR IVP PRN ×3 (18:59→23:53)
[2016-11-23] MEDS: HYDROmorphONE/DILAUDID 1 MG/ML SYR IVP PRN ×10 (02:16→23:05)
[2016-11-23] MEDS: BECLOMETHASONE QVAR 80 MDI IH SCH ×2 (05:01→19:48)
[2016-11-23] MEDS: ONDANSETRON 4 MG/2 ML VIAL IVP PRN ×4 (05:41→19:49)
[2016-11-23 05:42] LABS: HEMATOCRIT 46.6 % (40.0-51.0); HEMOGLOBIN 15.2 g/dL (13.7-17.5); MEAN CELL HEMOGLOBIN 28.1 pg (27.9-34.1); MEAN CELL HEMOGLOBIN CONCENTR. 32.6 g/dL (32.4-36.7); MEAN CELL VOLUME 86.3 fL (81.5-99.8); RED BLOOD CELL COUNT 5.4 10^6/uL (4.40-6.38); RED CELL DISTRIBUTION WIDTH 13.2 % (11.5-15.2)
[2016-11-23 06:06] LABS: ANION GAP 7 mEq/L (8-16); CALCIUM 8.7 mg/dL (8.5-10.4); CARBON DIOXIDE 27 mEq/l (22-31); CHLORIDE 108 mEq/L (97-110); GLOMERULAR FILTRATION RATE > 60; GLUCOSE 76 mg/dL (70-100); POTASSIUM 4.4 mEq/L (3.5-5.2); SODIUM 142 mEq/L (134-144)
[2016-11-23] MEDS: NICOTINE 21 MG/24 HR PATCH TD SCH (07:48)
[2016-11-23] MEDS: ENOXAPARIN 40 MG/0.4 ML SYR SC SCH (07:49)
[2016-11-23] MEDS: LORazepam 2 MG/ML INJ IVP PRN (08:41)
[2016-11-23] MEDS ORDERED: LURASIDONE HCL 60 MG PO SCH (10:00)
--- NOTE | 2016-11-23 10:04 | HOSPPROG ---
Hospitalist Progress Note Assessment/Plan: # Acute pancreatitis- CT abdomen (personally reviewed and interpreted) mild pancreatitis at head of pancreas- lipase 1155 - wbc normal with recent complicated history of cholelithiasis and cholecystectomy oxygen saturations 92% on 1L - pain improved this am - advance diet diet to clears - IV fluids until taking adequate PO - transition IV pain medication to PO # complicated access- extensive time spent trying to establish IV access for this patient- unsuccessfully - PICC line ordered - will use Roxanol and Ativan liquid p.r.n. until axis re-established # personality disorder- will restart PO meds today with advanced diet # prophylaxis- Lovenox # diet- advance today # disposition greater than 2 midnights as the patient is presenting with acute pancreatitis requiring IV pain medications and IV fluids I have discussed case with the RN we will work on transitioning to PO diet and meds today with dispo tomorrow as goal Subjective: pain improved Objective: Vital Signs Temp Pulse Resp BP Pulse Ox 36.7 C 56 L 18 109/68 92 11/23/16 07:59 11/23/16 07:59 11/23/16 07:59 11/23/16 07:59 11/23/16 07:59 Laboratory Results 11/23/16 05:25 11/23/16 05:25 11/22/16 11/23/16 11/24/16 05:59 05:59 05:59 Intake Total 1000 1850 Output Total 1300 Balance 1000 550 - Physical Exam Constitutional: appears nourished Eyes: anicteric sclera Ears, Nose, Mouth, Throat: dry mucous membranes Cardiovascular: regular rate and rhythym Respiratory: no respiratory distress, no rales or rhonchi Gastrointestinal: normoactive bowel sounds, tenderness, No guarding, No rebound Genitourinary: no bladder fullness Skin: warm, normal color Musculoskeletal: No asymmetric calves Neurologic: AAOx3 Psychiatric: agitated Lymph, Heme, Immunologic: no cervical LAD ICD10 Worksheet Patient Problems: Problems Problem Status Onset Pancreatitis, acute Acute Severe depressed bipolar I disorder without psychotic features Active Abdominal pain Acute Hypoventilation Acute Hypoxia Acute Opioid dependence Acute
[2016-11-23] MEDS: clonazePAM 1 MG TAB PO SCH ×2 (10:21→19:49)
[2016-11-23] MEDS: FLUoxetine 10 MG CAP PO SCH (10:21)
[2016-11-23] MEDS: LURASIDONE HCL 40 MG TAB PO SCH (10:22)
[2016-11-23] MEDS: oxyCODONE IR 5 MG TAB PO PRN ×3 (10:24→19:50)
[2016-11-23] MEDS: ACETAMINOPHEN 325 MG TAB PO PRN ×2 (11:57→21:16)
[2016-11-23] MEDS: NS 1,000 ML IV SCH (18:38)
[2016-11-23] MEDS ORDERED: CARISOPRODOL 350 MG TAB PO SCH (21:00)
[2016-11-24] MEDS: oxyCODONE IR 5 MG TAB PO PRN ×4 (01:02→16:24)
[2016-11-24 03:45] VITALS: O2SAT 94
[2016-11-24] MEDS: HYDROmorphONE/DILAUDID 1 MG/ML SYR IVP PRN ×3 (03:52→11:25)
[2016-11-24] MEDS: ACETAMINOPHEN 325 MG TAB PO PRN ×4 (04:00→16:24)
[2016-11-24 04:26] LABS: ANION GAP 6 mEq/L (8-16); CALCIUM 8.9 mg/dL (8.5-10.4); CARBON DIOXIDE 29 mEq/l (22-31); CHLORIDE 106 mEq/L (97-110); GLOMERULAR FILTRATION RATE > 60; GLUCOSE 82 mg/dL (70-100); POTASSIUM 4.4 mEq/L (3.5-5.2); SODIUM 141 mEq/L (134-144)
[2016-11-24] MEDS: NS 1,000 ML IV SCH (05:20)
[2016-11-24] MEDS: BECLOMETHASONE QVAR 80 MDI IH SCH ×2 (05:20→16:51)
[2016-11-24] MEDS: ONDANSETRON DISINTEGRATING 4 MG TAB PO PRN ×2 (07:56→16:02)
[2016-11-24] MEDS: ENOXAPARIN 40 MG/0.4 ML SYR SC SCH (08:35)
[2016-11-24] MEDS: LURASIDONE HCL 40 MG TAB PO SCH (08:36)
[2016-11-24] MEDS: FLUoxetine 10 MG CAP PO SCH (08:36)
[2016-11-24] MEDS: clonazePAM 1 MG TAB PO SCH (08:36)
[2016-11-24] MEDS: NICOTINE 21 MG/24 HR PATCH TD SCH (08:38)
[2016-11-24 08:58] VITALS: BP 103/71; PULSE 57; RESP 10; TEMP 97.8
--- NOTE | 2016-11-24 13:25 | PDIAF ---
- Diagnosis Diagnosis: pancreatitis; personality disorder; chronic pain Code Status: Full Code - Medication Management Discharge Medications: Medications to Continue on Transfer Beclomethasone Qvar 80 [Qvar 80 (*)] 1 puffs IH BIDI 08/09/16 [Last Taken ] Carisoprodol [Soma (*)] 350 mg PO HS 08/09/16 [Last Taken 11/21/16] FLUoxetine [Prozac 10 MG (*)] 10 mg PO DAILY 08/09/16 [Last Taken 11/21/16] Lurasidone HCl [Latuda] 60 mg PO DAILY 08/09/16 [Last Taken 11/21/16] clonazePAM [klonoPIN (*)] 1 mg PO BID 08/09/16 [Last Taken 11/21/16 21:00] Ondansetron Odt [Zofran Odt 4 mg (*)] 4 mg PO Q4 PRN #10 tab 11/22/16 [Last Taken Unknown] Nicotine [Nicoderm Cq 21 mg (*)] 21 mg TD DAILY #0 patch 11/24/16 [Last Taken Unknown] Ondansetron Odt [Zofran Odt 4 mg (*)] 4 mg PO Q4 PRN #0 tab 11/24/16 [Last Taken Unknown] oxyCODONE HCL [Oxycontin] 20 mg PO BID 11/24/16 [Last Taken Unknown] Discharge Medications: Refer to the Discharge Home Medication list for PRN reason. - Orders Services needed: Registered Nurse, Certified Overnight Houseperson, Master Substation Electrician Diet Recommendation: low fat Diet Texture: Regular Texture Diet - Follow Up Care Current Providers and Referrals: Destinee Pratt MD [Primary Care Provider] - As per Instructions
--- NOTE | 2016-11-24 13:28 | PDDCSUM ---
Discharge Summary Discharge Summary: DISCHARGE DIAGNOSES: -acute pancreatitis -prior history of gallstone pancreatitis and complicated cholecystectomy -history of personality disorder -History of chronic abdominal pain with chronic daily prescribed narcotic use; past history of significant narcotic abuse and apparent drug-seeking behaviors HOSPITAL COURSE SUMMARY: The patient presented with typical upper abdominal pain tenderness and elevated lipase. There were no signs of any complications of his pancreatitis and no complications developed while he was here. He was treated with bowel rest IV fluids and pain management. He recovered very nicely at this time is eating soups and other soft foods without difficulty. There is no fever no sign of infection. He is stable for discharge from hospital transfer back to [facility]. MEDICATION CHANGES: Addition of Zofran for p.r.n. use FOLLOW-UP PLAN: With his primary care physician as needed Greater than 35 minutes bedside and care coordination time today
== END 2016-11-24 17:20 | DRG 440 ==
LOC: EDUNIT# → F1N 06:02 → OBSVTOIN 15:39
PROVIDERS: ADMIT Internal Medicine; ATTEND Internal Medicine
PROC: 02HV33Z Insertion of Infusion Device into Superior Vena Cava, Percutaneous Approach (ICD-10-PCS; principal; 2016-11-22)
DX: K85.90 Acute pancreatitis without necrosis or infection, unspecified (principal); F60.9 Personality disorder, unspecified; Z72.0 Tobacco use; Z87.820 Personal history of traumatic brain injury
CPT/HCPCS: 96374; C1751; J1170; J1200; J1650; J2060; J2405; J3010; Q9967

== ENCOUNTER 2017-01-28 14:17 | Emergency (ER) | payer OTHER, MEDICAID ==
--- NOTE | 2017-01-28 14:38 | EDPHY ---
H & P Time Seen by Provider: 01/28/17 14:21 HPI/ROS: Chief complaint. Abdominal pain HPI. 45-year-old male with history of pancreatitis here by EMS with abdominal pain for 4 days. He describes upper mid abdominal pain described as aching and worse with eating. Radiation to his back. Nausea and vomiting. No diarrhea. His symptoms are worse with eating. Similar to previous pancreatitis. Denies alcohol. Apparently the thought was that he had gallstone pancreatitis and he had a cholecystectomy 6 months ago. However he had a episode of pancreatitis November 2016. Apparently labs were drawn at [place] where the patient lives in his lipase was elevated. No chest discomfort or shortness of breath. No fever. ROS Constitutional. no fever/chills, no weakness Eyes. no problems with vision ENT. no sore throat, no nasal drainage Cardiovascular. no chest pain Respiratory. no shortness of breath, no cough Abdominal. Abdominal pain with nausea and vomiting . no problems urinating MS. no calf pain/swelling, no neck/back pain, no joint pain Skin. no rash Lymph. no swollen glands Neuro. no headache, no dizziness, no difficulty walking or with speech Past Medical/Surgical History: Past medical history seen for schizoaffective disorder, TBI, hep C, neuropathy, anxiety, cholecystectomy, pancreatitis, chronic abdominal pain Social History: Single, daily smoker, no alcohol Smoking Status: Heavy smoker Physical Exam: General Appearance: Alert well-developed male mild distress. Vital signs Eyes: Pupils equal and round no pallor or injection. ENT, Mouth: Mucous membranes are moist. Respiratory: There are no retractions, lungs are clear to auscultation. Cardiovascular: Regular rate and rhythm. Gastrointestinal: Abdomen is soft with tenderness in the epigastrium. No masses. Bowel sounds normal Neurological: Awake and alert, sensory and motor exams grossly normal. Skin: Warm and dry, no rashes. Musculoskeletal: Neck is supple nontender. Extremities symmetrical, full range of motion. Psychiatric: Patient is oriented X 3, there is no agitation. Constitutional: Initial Vital Signs Temperature (C) 37 C 01/28/17 14:24 Heart Rate 75 01/28/17 14:24 Respiratory Rate 20 01/28/17 14:24 Blood Pressure 133/84 H 01/28/17 14:24 O2 Sat (%) 91 L 01/28/17 14:24 O2 Delivery Mode Room Air O2 (L/minute) 2 Allergies/Adverse Reactions: haloperidol lactate [From Haldol] Allergy (Severe, Verified 11/22/16 00:22) TONGUE SWELLING naproxen Allergy (Severe, Verified 11/22/16 00:22) adhesive tape Allergy (Verified 11/22/16 00:22) ibuprofen [From Motrin] Allergy (Verified 11/22/16 00:22) iodine Allergy (Verified 11/22/16 00:22) lactose Allergy (Verified 11/22/16 00:22) lithium Allergy (Verified 11/22/16 00:22) Home Medications: Medication Instructions Recorded Beclomethasone Qvar 80 [Qvar 80 1 puffs IH BIDI 08/09/16 (*)] Carisoprodol [Soma (*)] 350 mg PO HS 08/09/16 FLUoxetine [Prozac 10 MG (*)] 10 mg PO DAILY 08/09/16 Lurasidone HCl [Latuda] 60 mg PO DAILY 08/09/16 clonazePAM [klonoPIN (*)] 1 mg PO BID 08/09/16 Ondansetron Odt [Zofran Odt 4 mg 4 mg PO Q4 PRN #10 tab 11/22/16 (*)] Nicotine [Nicoderm Cq 21 mg (*)] 21 mg TD DAILY #0 patch 11/24/16 Ondansetron Odt [Zofran Odt 4 mg 4 mg PO Q4 PRN #0 tab 11/24/16 (*)] oxyCODONE HCL [Oxycontin] 20 mg PO BID 11/24/16 Medical Decision Making - Diagnostics Imaging Results: Imaging Impressions Abdomen CT 01/28/17 16:32 Impression: Status post cholecystectomy. No evidence for acute abdominal or pelvic abnormality. Results called and discussed with Brad Johnson MD on January 28, [address] abdomen reviewed by me and discussed with Dr. Abrams is nonacute Procedures: IV normal saline ED Course/Re-evaluation: 4:25 p.m. re-medicated with morphine 4:30 p.m. lab work is normal. We will do a CT scan of the patient's abdomen pelvis. Re-evaluation 7:00 p.m. patient is stable. He and I discussed imaging study results as well as laboratory evaluation. We discussed treatment plan including criteria for return importance of follow-up and further evaluation. He expresses understanding and agreement. He asks that we give him some Mylanta before he leaves. We will arrange transport back to [facility] Differential Diagnosis: I considered pancreatitis, diverticulitis, peptic ulcer disease. Patient has normal workup and normal labs without evidence of pancreatitis - Data Points Laboratory Results: Laboratory Results 01/28/17 16:00 01/28/17 16:00 01/28/17 01/28/17 01/28/17 16:00 16:00 15:15 WBC 7.06 10^3/uL 10^3/uL (3.80-9.50) RBC 5.48 10^6/uL 10^6/uL (4.40-6.38) Hgb 15.7 g/dL g/dL (13.7-17.5) Hct 47.3 % % (40.0-51.0) MCV 86.3 fL fL (81.5-99.8) MCH 28.6 pg pg (27.9-34.1) MCHC 33.2 g/dL g/dL (32.4-36.7) RDW 13.7 % % (11.5-15.2) Plt Count 141 10^3/uL L 10^3/uL (150-400) MPV 12.0 fL H fL (8.7-11.7) Neut % (Auto) 62.5 % % (39.3-74.2) Lymph % (Auto) 26.9 % % (15.0-45.0) [place] % (Auto) 7.6 % % (4.5-13.0) Eos % (Auto) 2.3 % % (0.6-7.6) Baso % (Auto) 0.3 % % (0.3-1.7) Nucleat RBC Rel Count 0.0 % % (0.0-0.2) Absolute Neuts (auto) 4.41 10^3/uL 10^3/uL (1.70-6.50) Absolute Lymphs (auto) 1.90 10^3/uL 10^3/uL (1.00-3.00) Absolute Monos (auto) 0.54 10^3/uL 10^3/uL (0.30-0.80) Absolute Eos (auto) 0.16 10^3/uL 10^3/uL (0.03-0.40) Absolute Basos (auto) 0.02 10^3/uL 10^3/uL (0.02-0.10) Absolute Nucleated RBC 0.00 10^3/uL 10^3/uL (0-0.01) Immature Gran % 0.4 % % (0.0-1.1) Immature Gran # 0.03 10^3/uL 10^3/uL (0.00-0.10) Turbidity TNP Sodium 144 mEq/L mEq/L TNP (134-144) Potassium 4.3 mEq/L mEq/L TNP (3.5-5.2) Chloride 110 mEq/L mEq/L TNP (97-110) Carbon Dioxide 20 mEq/l L mEq/l TNP (22-31) Anion Gap 14 mEq/L mEq/L TNP (8-16) BUN 12 mg/dL mg/dL TNP (7-23) Creatinine 1.1 mg/dL mg/dL TNP (0.7-1.3) Estimated GFR > 60 TNP Glucose 85 mg/dL mg/dL TNP (70-100) Calcium 9.5 mg/dL mg/dL TNP (8.5-10.4) Total Bilirubin 1.2 mg/dL mg/dL TNP (0.1-1.4) Conjugated Bilirubin 0.4 mg/dL mg/dL TNP (0.0-0.5) Unconjugated Bilirubin 0.8 mg/dL mg/dL TNP (0.0-1.1) AST 22 IU/L IU/L TNP (17-59) ALT 31 IU/L IU/L TNP (21-72) Alkaline Phosphatase 62 IU/L IU/L TNP (38-126) Total Protein 7.3 g/dL g/dL TNP (6.3-8.2) Albumin 4.5 g/dL g/dL TNP (3.5-5.0) Lipase 43.0 IU/L IU/L TNP (23-300) Specimen Hemolysis REJ Ethyl Alcohol < 10 mg/dL mg/dL TNP (0-10) 01/28/17 15:15 WBC REJ RBC TNP Hgb TNP Hct TNP MCV TNP MCH TNP MCHC TNP RDW TNP Plt Count TNP MPV TNP Neut % (Auto) TNP Lymph % (Auto) TNP [place] % (Auto) TNP Eos % (Auto) TNP Baso % (Auto) TNP Nucleat RBC Rel Count TNP Absolute Neuts (auto) TNP Absolute Lymphs (auto) TNP Absolute Monos (auto) TNP Absolute Eos (auto) TNP Absolute Basos (auto) TNP Absolute Nucleated RBC TNP Immature Gran % TNP Immature Gran # TNP Turbidity Sodium Potassium Chloride Carbon Dioxide Anion Gap BUN Creatinine Estimated GFR Glucose Calcium Total Bilirubin Conjugated Bilirubin Unconjugated Bilirubin AST ALT Alkaline Phosphatase Total Protein Albumin Lipase Specimen Hemolysis Ethyl Alcohol Medications Given: Discontinued Medications Sodium Chloride (Ns) 1,000 mls @ 0 mls/hr IV ONCE ONE; Wide Open PRN Reason: Protocol Stop: 01/28/17 14:46 Last Admin: 01/28/17 16:00 Dose: 1,000 mls Morphine Sulfate (Morphine) 6 mg IVP EDNOW ONE Stop: 01/28/17 14:46 Last Admin: 01/28/17 16:00 Dose: 6 mg Morphine Sulfate (Morphine) 6 mg IVP EDNOW ONE Stop: 01/28/17 16:24 Last Admin: 01/28/17 16:30 Dose: 6 mg Ondansetron HCl (Zofran) 4 mg IVP EDNOW ONE Stop: 01/28/17 14:46 Last Admin: 01/28/17 16:00 Dose: 4 mg Departure - Departure Disposition: Home, Routine, Self-Care Clinical Impression: Abdominal pain Qualifiers: Abdominal location: epigastric Qualified Code(s): R10.13 - Epigastric pain Condition: Good Instructions: Abdominal Pain (ED) Additional Instructions: Continue regular medications. Return for worsening symptoms. Recheck in 2-3 days by regular physician Referrals: Patient,NotPresent [Unknown] - As per Instructions
[2017-01-28] MEDS ORDERED: ONDANSETRON 4 MG/2 ML VIAL IVP ONE (14:45)
[2017-01-28] MEDS ORDERED: NS 1,000 ML IV ONE (14:45)
[2017-01-28 16:05] LABS: % IMMATURE GRANULYOCYTES 0.4 % (0.0-1.1); ABSOLUTE IMMATURE GRANULOCYTES 0.03 10^3/uL (0.00-0.10); ADD DIFF? NO; ADD MORPH? NO; ADD SCAN? NO; ATYPICAL LYMPHOCYTE FLAG 10 (0-99); FRAGMENT RBC FLAG 0 (0-99); HEMATOCRIT 47.3 % (40.0-51.0); HEMOGLOBIN 15.7 g/dL (13.7-17.5); LEFT SHIFT FLG 0 (0-99); LIPEMIA HEMOLYSIS FLAG 80 (0-99); MEAN CELL HEMOGLOBIN 28.6 pg (27.9-34.1); MEAN CELL HEMOGLOBIN CONCENTR. 33.2 g/dL (32.4-36.7); MEAN CELL VOLUME 86.3 fL (81.5-99.8); PLATELET CLUMPS FLAG 30 (0-99); PLATELET COUNT 141 10^3/uL (150-400); RED BLOOD CELL COUNT 5.48 10^6/uL (4.40-6.38); RED CELL DISTRIBUTION WIDTH 13.7 % (11.5-15.2)
[2017-01-28 16:25] LABS: ALANINE AMINOTRANSFERASE 31 IU/L (21-72); ALBUMIN 4.5 g/dL (3.5-5.0); ALKALINE PHOSPHATASE 62 IU/L (38-126); ANION GAP 14 mEq/L (8-16); ASPARTATE AMINOTRANSFERASE 22 IU/L (17-59); BILIRUBIN,TOTAL 1.2 mg/dL (0.1-1.4); BILIRUBIN-CONJUGATED 0.4 mg/dL (0.0-0.5); BILIRUBIN-UNCONJUGATED 0.8 mg/dL (0.0-1.1); CALCIUM 9.5 mg/dL (8.5-10.4); CARBON DIOXIDE 20 mEq/l (22-31); CHLORIDE 110 mEq/L (97-110); CREATININE 1.1 mg/dL (0.7-1.3); ETHANOL SERUM < 10 mg/dL (0-10); GLOMERULAR FILTRATION RATE > 60; GLUCOSE 85 mg/dL (70-100); POTASSIUM 4.3 mEq/L (3.5-5.2); SODIUM 144 mEq/L (134-144); TOTAL PROTEIN 7.3 g/dL (6.3-8.2)
[2017-01-28] MEDS ORDERED: IOPAMIDOL (ISOVUE-300) 100 ML BTL ONE (17:24)
[2017-01-28] MEDS ORDERED: MAG HYDROX/AL HYDROX/SIMETH 30 ML UDCUP PO ONE (19:09)
[2017-01-28 19:20] VITALS: BP 123/90; PULSE 66; RESP 17; TEMP 97.5; O2SAT 91
== END 2017-01-28 19:54 | disposition home or self-care (01) ==
LOC: EDUNIT#
DX: R10.13 Epigastric pain (principal); F17.200 Nicotine dependence, unspecified, uncomplicated; Z90.49 Acquired absence of other specified parts of digestive tract
CPT/HCPCS: 74177; 96361; 96374; 96375; 99285; J2405; Q9967; G0480

== ENCOUNTER 2017-06-07 03:03 | Inpatient (IN) | payer OTHER, MEDICAID ==
[2017-06-07] MEDS ORDERED: NS 1,000 ML IV ONE (03:16)
[2017-06-07] MEDS ORDERED: LIDOCAINE 2% VISCOUS 15 ML UDCUP PO ONE (03:16)
[2017-06-07] MEDS ORDERED: HYOSCYAMINE SULFATE 0.125 MG TAB PO ONE (03:16)
[2017-06-07] MEDS ORDERED: MAG HYDROX/AL HYDROX/SIMETH 30 ML UDCUP PO ONE (03:16)
--- NOTE | 2017-06-07 03:20 | EDPHY ---
H & P HPI/ROS: Chief Complaint: Abdominal pain, pancreatitis, suicidal HPI: 47-year-old male with a history of chronic abdominal pain which has been diagnosed as pancreatitis presenting with 2-3 weeks of persistent abdominal pain. Patient states he has been abdominal pain for months but it waxes and wanes. Patient states the pain is been worse the last couple of weeks. Some nausea vomiting. States his appetite is worse. No diarrhea or constipation. No blood or coffee-ground emesis. No dark tarry stools or blood per rectum. Pain is in his upper abdomen is similar to his prior pancreatitis. Patient states that he is she is fed up with this since feeling suicidal. Does not have any plan at this point. No chest pain or shortness of breath. ROS: 10 point Review of Systems is negative except as noted in the HPI. PMH: Schizoaffective disorder, chronic abdominal pain, pancreatitis Social History: Positive smoking, no alcohol, occasional marijuana Family History: non-contributory Physical Exam: Gen: Awake, Alert, No Distress HEENT: Nose: no rhinorrhea Eyes: PERRLA, EOMI Mouth: Moist mucosa Neck: Supple, no JVD Chest: nontender, lungs clear to auscultation Heart: S1, S2 normal, no murmur Abd: Soft, epigastric tenderness, no guarding Back: no CVA tenderness, no midline tenderness Ext: no edema, non-tender Skin: no rash Neuro: CN II-XII intact, Sensation grossly intact, Strength 5/5 in bilateral upper and lower extremities - Personal History Tetanus Vaccine Date: 2009 - Medical/Surgical History Hx Asthma: No Hx Chronic Respiratory Disease: No Hx Diabetes: No Hx Cardiac Disease: No Hx Renal Disease: No Hx Cirrhosis: No Hx Alcoholism: Yes Hx HIV/AIDS: No Hx Splenectomy or Spleen Trauma: No Other PMH: PMH- Agoraphobia, Bipolar, ADHD, Chronic pain, disc L5-S1, PANCREATITIS,ANXIETY, ETOH ABUSE,OPIOD DEPENDANCE, SCHIZOAFFECTIVE,INSOMNIA, NEUROPATHY,MUSCLE WEAKNESS, MUSCLE SPASM, TRAUMATIC BRAIN INJURY, right ankle repair. Liver failure - Social History Smoking Status: Heavy smoker Constitutional: Initial Vital Signs Temperature (C) 36.2 C 06/07/17 03:21 Heart Rate 71 06/07/17 03:21 Respiratory Rate 18 06/07/17 03:21 Blood Pressure 146/97 H 06/07/17 03:21 O2 Sat (%) 95 06/07/17 03:21 O2 Delivery Mode Nasal Cannula O2 (L/minute) 2 Allergies/Adverse Reactions: haloperidol lactate [From Haldol] Allergy (Severe, Verified 11/22/16 00:22) TONGUE SWELLING naproxen Allergy (Severe, Verified 11/22/16 00:22) adhesive tape Allergy (Verified 11/22/16 00:22) ibuprofen [From Motrin] Allergy (Verified 11/22/16 00:22) iodine Allergy (Verified 11/22/16 00:22) lactose Allergy (Verified 11/22/16 00:22) lithium Allergy (Verified 11/22/16 00:22) Home Medications: Medication Instructions Recorded Beclomethasone Qvar 80 [Qvar 80 1 puffs IH BIDI 08/09/16 (*)] Carisoprodol [Soma (*)] 350 mg PO HS 08/09/16 FLUoxetine [Prozac 10 MG (*)] 10 mg PO DAILY 08/09/16 Lurasidone HCl [Latuda] 60 mg PO DAILY 08/09/16 clonazePAM [klonoPIN (*)] 1 mg PO BID 08/09/16 Ondansetron Odt [Zofran Odt 4 mg 4 mg PO Q4 PRN #10 tab 11/22/16 (*)] Nicotine [Nicoderm Cq 21 mg (*)] 21 mg TD DAILY #0 patch 11/24/16 Ondansetron Odt [Zofran Odt 4 mg 4 mg PO Q4 PRN #0 tab 11/24/16 (*)] oxyCODONE HCL [Oxycontin] 20 mg PO BID 11/24/16 Medical Decision Making ED Course/Re-evaluation: Patient continues to complain of abdominal pain. This is after 100 mcg of fentanyl. He call levels immediately. He has had issues with pain management in the past. I have ordered 20 mg of ketamine. Patient continued to complain of abdominal pain. Reviewing his records there has been long issues of pain control for him. I have discussed with the hospitalist, Dr. Hamm. Will admit to the floor for continued pain management and further care. Patient is feeling significantly improved after ketamine. He is now osito for safety. He states he is not suicidal. He thinks he felt that way just because he was feeling so sick for the last couple of weeks. Patient does not meet criteria for mental health hold. - Data Points Laboratory Results: Laboratory Results 06/07/17 03:54 06/07/17 03:54 06/07/17 06/07/17 03:54 03:54 WBC 7.67 10^3/uL 10^3/uL (3.80-9.50) RBC 5.05 10^6/uL 10^6/uL (4.40-6.38) Hgb 16.0 g/dL g/dL (13.7-17.5) Hct 45.1 % % (40.0-51.0) MCV 89.3 fL fL (81.5-99.8) MCH 31.7 pg pg (27.9-34.1) MCHC 35.5 g/dL g/dL (32.4-36.7) RDW 13.7 % % (11.5-15.2) Plt Count 136 10^3/uL L 10^3/uL (150-400) MPV 11.5 fL fL (8.7-11.7) Neut % (Auto) 56.7 % % (39.3-74.2) Lymph % (Auto) 28.9 % % (15.0-45.0) [place] % (Auto) 8.5 % % (4.5-13.0) Eos % (Auto) 5.1 % % (0.6-7.6) Baso % (Auto) 0.7 % % (0.3-1.7) Nucleat RBC Rel Count 0.0 % % (0.0-0.2) Absolute Neuts (auto) 4.35 10^3/uL 10^3/uL (1.70-6.50) Absolute Lymphs (auto) 2.22 10^3/uL 10^3/uL (1.00-3.00) Absolute Monos (auto) 0.65 10^3/uL 10^3/uL (0.30-0.80) Absolute Eos (auto) 0.39 10^3/uL 10^3/uL (0.03-0.40) Absolute Basos (auto) 0.05 10^3/uL 10^3/uL (0.02-0.10) Absolute Nucleated RBC 0.00 10^3/uL 10^3/uL (0-0.01) Immature Gran % 0.1 % % (0.0-1.1) Immature Gran # 0.01 10^3/uL 10^3/uL (0.00-0.10) Sodium 144 mEq/L mEq/L (134-144) Potassium 4.0 mEq/L mEq/L (3.5-5.2) Chloride 106 mEq/L mEq/L (97-110) Carbon Dioxide 25 mEq/l mEq/l (22-31) Anion Gap 13 mEq/L mEq/L (8-16) BUN 21 mg/dL mg/dL (7-23) Creatinine 1.0 mg/dL mg/dL (0.7-1.3) Estimated GFR > 60 Glucose 81 mg/dL mg/dL (70-100) Calcium 9.3 mg/dL mg/dL (8.5-10.4) Total Bilirubin 0.8 mg/dL mg/dL (0.1-1.4) AST 23 IU/L IU/L (17-59) ALT 30 IU/L IU/L (21-72) Alkaline Phosphatase 54 IU/L IU/L (38-126) Total Protein 6.9 g/dL g/dL (6.3-8.2) Albumin 4.2 g/dL g/dL (3.5-5.0) Lipase 1107 IU/L H IU/L (23-300) Medications Given: Discontinued Medications Al Hydroxide/Mg Hydroxide (Maalox Susp) 30 ml PO ONCE ONE Stop: 06/07/17 03:17 Last Admin: 06/07/17 03:39 Dose: 30 ml Fentanyl (Sublimaze) 100 mcg IVP EDNOW ONE Stop: 06/07/17 04:46 Last Admin: 06/07/17 04:52 Dose: 100 mcg Hyoscyamine Sulfate (Levsin, Hyomax-Sl) 0.25 mg PO ONCE ONE Stop: 06/07/17 03:17 Last Admin: 06/07/17 03:38 Dose: 0.25 mg Sodium Chloride (Ns) 1,000 mls @ 0 mls/hr IV ONCE ONE; Wide Open PRN Reason: Protocol Stop: 06/07/17 03:17 Last Admin: 06/07/17 03:56 Dose: 1,000 mls Ketamine HCl (Ketamine) 20 mg IVP EDNOW ONE Stop: 06/07/17 05:18 Last Admin: 06/07/17 05:20 Dose: 20 mg Lidocaine (Lidocaine 2% Viscous) 15 ml PO ONCE ONE Stop: 06/07/17 03:17 Last Admin: 06/07/17 03:39 Dose: 15 ml Departure - Departure Disposition: [facility] Inpatient Acute Clinical Impression: Pancreatitis, acute Condition: Fair
[2017-06-07 04:03] LABS: PLATELET COUNT 136 10^3/uL (150-400)
[2017-06-07] MEDS ORDERED: fentaNYL 100 MCG/2 ML INJ IVP ONE (04:45)
[2017-06-07] MEDS ORDERED: KETAMINE 100 MG/10 ML SYR IVP ONE ×2 (05:17→06:08)
[2017-06-07] MEDS ORDERED: D5W 1/2 NS 1,000 ML IV SCH (05:30)
--- NOTE | 2017-06-07 05:50 | PDGENHP ---
History and Physical - Chief Complaint Abdominal pain - History of Present Illness 47 yo M w/ hx of Bipolar d/o, chronic opiate use, and various bouts of pancreatitis presents with 2 weeks of abdominal pain. Patient reports 2 weeks of progressive abdominal pain leading to excruciating pain on the day of presentation. He has also been nauseous, unable to tolerate oral intake, and has been having some loose stools whenever he eats. He thinks this feels similar to prior bouts of pancreatitis. He denies fevers, chills, and other infectious symptoms. History Information - Allergies/Home Medication List Allergies/Adverse Reactions: haloperidol lactate [From Haldol] Allergy (Severe, Verified 11/22/16 00:22) TONGUE SWELLING naproxen Allergy (Severe, Verified 11/22/16 00:22) adhesive tape Allergy (Verified 11/22/16 00:22) ibuprofen [From Motrin] Allergy (Verified 11/22/16 00:22) iodine Allergy (Verified 11/22/16 00:22) lactose Allergy (Verified 11/22/16 00:22) lithium Allergy (Verified 11/22/16 00:22) Home Medications: Beclomethasone Qvar 80 [Qvar 80 (*)] 1 puffs IH BIDI 08/09/16 [Last Taken ] Carisoprodol [Soma (*)] 350 mg PO HS 08/09/16 [Last Taken 11/21/16] FLUoxetine [Prozac 10 MG (*)] 10 mg PO DAILY 08/09/16 [Last Taken 11/21/16] Lurasidone HCl [Latuda] 60 mg PO DAILY 08/09/16 [Last Taken 11/21/16] clonazePAM [klonoPIN (*)] 1 mg PO BID 08/09/16 [Last Taken 11/21/16 21:00] oxyCODONE HCL [Oxycontin] 20 mg PO BID 11/24/16 [Last Taken Unknown] I have personally reviewed and updated: family history, medical history - Past Medical History Additional medical history: Bipolar d/o. Pancreatitis. Chronic opiate use - Surgical History Reports: cholecystectomy - Family History Positive for: CAD - Social History Smoking Status: Heavy smoker Alcohol Use: None Review of Systems Review of Systems: ROS: 10pt was reviewed & negative except for what was stated in HPI & below Physical Exam Physical Exam: Temp Pulse Resp BP Pulse Ox 36.2 C 63 18 146/97 H 95 06/07/17 03:21 06/07/17 04:00 06/07/17 04:00 06/07/17 04:00 06/07/17 04:00 Constitutional: no apparent distress, appears nourished, unkempt Eyes: PERRL, EOMI Ears, Nose, Mouth, Throat: moist mucous membranes, no oral mucosal ulcers Cardiovascular: regular rate and rhythym, no murmur, rub, or gallop Respiratory: no respiratory distress, clear to auscultation Gastrointestinal: tenderness (Exquisite, diffuse), guarding, No rebound Skin: warm, normal color Musculoskeletal: full muscle strength, no muscle tenderness Neurologic: AAOx3, CN II-XII Intact Psychiatric: interacting appropriately, not anxious, other (Denies SI on my evaluation) Lab Data & Imaging Review 06/07/17 03:54 06/07/17 03:54 WBC 7.67 10^3/uL (3.80-9.50) 06/07/17 03:54 RBC 5.05 10^6/uL (4.40-6.38) 06/07/17 03:54 Hgb 16.0 g/dL (13.7-17.5) 06/07/17 03:54 Hct 45.1 % (40.0-51.0) 06/07/17 03:54 MCV 89.3 fL (81.5-99.8) 06/07/17 03:54 MCH 31.7 pg (27.9-34.1) 06/07/17 03:54 MCHC 35.5 g/dL (32.4-36.7) 06/07/17 03:54 RDW 13.7 % (11.5-15.2) 06/07/17 03:54 Plt Count 136 10^3/uL (150-400) L 06/07/17 03:54 MPV 11.5 fL (8.7-11.7) 06/07/17 03:54 Neut % (Auto) 56.7 % (39.3-74.2) 06/07/17 03:54 Lymph % (Auto) 28.9 % (15.0-45.0) 06/07/17 03:54 [place] % (Auto) 8.5 % (4.5-13.0) 06/07/17 03:54 Eos % (Auto) 5.1 % (0.6-7.6) 06/07/17 03:54 Baso % (Auto) 0.7 % (0.3-1.7) 06/07/17 03:54 Nucleat RBC Rel Count 0.0 % (0.0-0.2) 06/07/17 03:54 Absolute Neuts (auto) 4.35 10^3/uL (1.70-6.50) 06/07/17 03:54 Absolute Lymphs (auto) 2.22 10^3/uL (1.00-3.00) 06/07/17 03:54 Absolute Monos (auto) 0.65 10^3/uL (0.30-0.80) 06/07/17 03:54 Absolute Eos (auto) 0.39 10^3/uL (0.03-0.40) 06/07/17 03:54 Absolute Basos (auto) 0.05 10^3/uL (0.02-0.10) 06/07/17 03:54 Absolute Nucleated RBC 0.00 10^3/uL (0-0.01) 06/07/17 03:54 Immature Gran % 0.1 % (0.0-1.1) 06/07/17 03:54 Immature Gran # 0.01 10^3/uL (0.00-0.10) 06/07/17 03:54 Sodium 144 mEq/L (134-144) 06/07/17 03:54 Potassium 4.0 mEq/L (3.5-5.2) 06/07/17 03:54 Chloride 106 mEq/L (97-110) 06/07/17 03:54 Carbon Dioxide 25 mEq/l (22-31) 06/07/17 03:54 Anion Gap 13 mEq/L (8-16) 06/07/17 03:54 BUN 21 mg/dL (7-23) 06/07/17 03:54 Creatinine 1.0 mg/dL (0.7-1.3) 06/07/17 03:54 Estimated GFR > 60 06/07/17 03:54 Glucose 81 mg/dL (70-100) 06/07/17 03:54 Calcium 9.3 mg/dL (8.5-10.4) 06/07/17 03:54 Total Bilirubin 0.8 mg/dL (0.1-1.4) 06/07/17 03:54 AST 23 IU/L (17-59) 06/07/17 03:54 ALT 30 IU/L (21-72) 06/07/17 03:54 Alkaline Phosphatase 54 IU/L (38-126) 06/07/17 03:54 Total Protein 6.9 g/dL (6.3-8.2) 06/07/17 03:54 Albumin 4.2 g/dL (3.5-5.0) 06/07/17 03:54 Lipase 1107 IU/L (23-300) H 06/07/17 03:54 Assessment & Plan Assessment: 47 yo M w/ hx of chronic opiate use, bipolar d/o, and various prior bouts of pancreatitis presents with likely recurrent pancreatitis. Plan: 1. Acute pancreatitis - Lipase 1100, which is consistent with prior flares. Unclear trigger as patient does not drink alcohol and is s/p cholecystectomy for suspicion of gallstone pancreatitis. Most likely etiology is medication induced, as patient is taking Seroquel and Depakote, both of which are known to cause pancreatitis. - NPO, mIVF, ADAT, anti-emetics - morphine, oxycodone PRN for pain control - Consider psychiatry consult for discussion about medication management 2. Chronic opiate use - On methadone 10 mg BID as an outpatient, continue while inpatient with additional opiates for treatment of pancreatitis. 3. Bipolar d/o - Patient claims reasonable control, although exacerbated by pain episodes such as today. He denies SI on my evaluation now that his pain is better controlled. He lists Trileptal, Seroquel, and Depakote as his home medications. Situation complicated by recurrent pancreatitis, which could be medication induced. Diet - NPO, ADAT Ppx - SCDs Code - Full Dispo - Admit to observation status
[2017-06-07] MEDS: ONDANSETRON 4 MG/2 ML VIAL IVP PRN ×4 (07:39→20:34)
[2017-06-07] MEDS ORDERED: NALOXONE HCL 0.4 MG/ML INJ IVP PRN (10:56)
[2017-06-07] MEDS ORDERED: OXcarbazepine 300 MG TAB PO SCH (11:15)
--- NOTE | 2017-06-07 11:16 | HOSPPROG ---
Hospitalist Progress Note Assessment/Plan: # pancreatitis - cont IVF, anti-emetics, change to REPAIRER EVAPORATOR for pain control - possibly d/t depakote # bipolar - stopped his depakote a few days ago - cont trileptal, seroquel - psychiatry consult for med management # passive suicidal ideation - contracts for safety with me; I don't think he needs an M1 now - appreciate psychiatry assistance - will request for Zulema Saunders # chronic opiate use - on iv narcotics currently 35 minutes of direct face to face patient care time from 10:40-11:15a Objective: Vital Signs Temp Pulse Resp BP Pulse Ox 36.6 C 53 L 17 124/83 H 95 06/07/17 09:22 06/07/17 09:22 06/07/17 09:22 06/07/17 09:22 06/07/17 09:22 06/06/17 06/07/17 06/08/17 05:59 05:59 05:59 Intake Total 2040 Output Total 500 Balance 1540 ICD10 Worksheet Patient Problems: Problems Problem Status Onset Severe depressed bipolar I disorder without psychotic features Active Opioid dependence Acute Pancreatitis, acute Acute Hypoxia Acute Hypoventilation Acute Abdominal pain Acute
--- NOTE | 2017-06-07 11:16 | HOSPPROG ---
Hospitalist Progress Note Assessment/Plan: # pancreatitis - cont IVF, anti-emetics, change to MANAGER RAIL for pain control - possibly d/t depakote # bipolar - stopped his depakote a few days ago - cont trileptal, seroquel - psychiatry consult for med management # passive suicidal ideation - contracts for safety with me; I don't think he needs an M1 now - appreciate psychiatry assistance - will request for Zulema Saunders # chronic opiate use - on iv narcotics currently 35 minutes of direct face to face patient care time from 10:40-11:15a Objective: Vital Signs Temp Pulse Resp BP Pulse Ox 36.6 C 53 L 17 124/83 H 95 06/07/17 09:22 06/07/17 09:22 06/07/17 09:22 06/07/17 09:22 06/07/17 09:22 06/06/17 06/07/17 06/08/17 05:59 05:59 05:59 Intake Total 2040 Output Total 500 Balance 1540 ICD10 Worksheet Patient Problems: Problems Problem Status Onset Severe depressed bipolar I disorder without psychotic features Active Opioid dependence Acute Pancreatitis, acute Acute Hypoxia Acute Hypoventilation Acute Abdominal pain Acute
--- NOTE | 2017-06-07 11:16 | HOSPPROG ---
Hospitalist Progress Note Assessment/Plan: # pancreatitis - cont IVF, anti-emetics, change to LEAD TECHNICAL ARCHITECT for pain control - possibly d/t depakote # bipolar - stopped his depakote a few days ago - cont trileptal, seroquel - psychiatry consult for med management # passive suicidal ideation - contracts for safety with me; I don't think he needs an M1 now - appreciate psychiatry assistance - will request for Zulema Saunders # chronic opiate use - on iv narcotics currently 35 minutes of direct face to face patient care time from 10:40-11:15a Objective: Vital Signs Temp Pulse Resp BP Pulse Ox 36.6 C 53 L 17 124/83 H 95 06/07/17 09:22 06/07/17 09:22 06/07/17 09:22 06/07/17 09:22 06/07/17 09:22 06/06/17 06/07/17 06/08/17 05:59 05:59 05:59 Intake Total 2040 Output Total 500 Balance 1540 ICD10 Worksheet Patient Problems: Problems Problem Status Onset Severe depressed bipolar I disorder without psychotic features Active Opioid dependence Acute Pancreatitis, acute Acute Hypoxia Acute Hypoventilation Acute Abdominal pain Acute
[2017-06-07] MEDS: HYDROmorphONE/DILAUDID 6 MG/30 ML PCA IV PRN ×3 (11:37→23:29)
--- NOTE | 2017-06-07 11:39 | ASMTCMCOM ---
CM Note CM Note Notes: Reviewed chart and d/w RN. Pt admitted w/pancreatitis and pain, has hx of bipolar, lives at [facility]. Psych consult ordered to help w/med mangement and order for Zulema Saunders consult. Anticipate pt will return to [facility] when medically stable. CASSANDRA w/f. Date Signed: 06/07/2017 11:39 AM Electronically Signed By:Margarita Tate RN
--- NOTE | 2017-06-07 11:39 | ASMTCMCOM ---
CM Note CM Note Notes: Reviewed chart and d/w RN. Pt admitted w/pancreatitis and pain, has hx of bipolar, lives at [facility]. Psych consult ordered to help w/med mangement and order for Zulema Saunders consult. Anticipate pt will return to [facility] when medically stable. CASSANDRA w/f. Date Signed: 06/07/2017 11:39 AM Electronically Signed By:Margarita Tate RN
--- NOTE | 2017-06-07 12:30 | CPEKG ---
Heart Rate: 57 RR Interval: 1053 P-R Interval: 176 QRSD Interval: 82 QT Interval: 404 QTC Interval: 394 P [place]: 5 QRS [place]: 51 T Wave [place]: 22 EKG Severity - NORMAL ECG - EKG Impression: SINUS RHYTHM EKG Impression: Probable insignificant Q waves in the inferior leads EKG Impression: Resolution of ventricular ectopy since April 03, 2016 Electronically Signed By: Brad Sanchez 07-Jun-2017 18:03:39
--- NOTE | 2017-06-07 12:30 | CPEKG ---
Heart Rate: 57 RR Interval: 1053 P-R Interval: 176 QRSD Interval: 82 QT Interval: 404 QTC Interval: 394 P [place]: 5 QRS [place]: 51 T Wave [place]: 22 EKG Severity - NORMAL ECG - EKG Impression: SINUS RHYTHM EKG Impression: Probable insignificant Q waves in the inferior leads EKG Impression: Resolution of ventricular ectopy since April 03, 2016 Electronically Signed By: Brad Sanchez 07-Jun-2017 18:03:39
[2017-06-07] MEDS: NICOTINE 14 MG/24 HR PATCH TD SCH (13:43)
[2017-06-07] MEDS: METHADONE HCL 10 MG TAB PO SCH (17:20)
[2017-06-07] MEDS: PREGABALIN 50 MG CAP PO SCH ×2 (17:20→20:35)
[2017-06-07] MEDS: LORazepam 1 MG TAB PO SCH ×2 (17:21→21:15)
[2017-06-07] MEDS: NS 1,000 ML IV SCH (17:21)
[2017-06-07] MEDS ORDERED: BECLOMETHASONE QVAR 80 MDI IH SCH (18:00)
[2017-06-07] MEDS: QUEtiapine FUMARATE 300 MG TAB PO SCH (20:34)
[2017-06-07] MEDS: OXcarbazepine 300 MG TAB PO SCH (20:34)
[2017-06-07] MEDS ORDERED: QUEtiapine FUMARATE 200 MG TAB PO SCH (21:00)
[2017-06-07] MEDS: PROMETHAZINE HCL 25 MG/ML INJ IVP PRN (21:32)
[2017-06-07] MEDS: oxyCODONE IR 5 MG TAB PO PRN (23:41)
[2017-06-08] MEDS: ACETAMINOPHEN 325 MG TAB PO PRN ×2 (01:19→14:34)
[2017-06-08] MEDS: NS 1,000 ML IV SCH ×3 (01:24→20:38)
[2017-06-08 05:23] LABS: PLATELET COUNT 108 10^3/uL (150-400)
[2017-06-08] MEDS: ONDANSETRON 4 MG/2 ML VIAL IVP PRN ×2 (06:15→15:26)
[2017-06-08] MEDS: HYDROmorphONE/DILAUDID 6 MG/30 ML PCA IV PRN ×3 (07:33→20:38)
[2017-06-08] MEDS: METHADONE HCL 10 MG TAB PO SCH ×2 (08:19→16:51)
[2017-06-08] MEDS: LORazepam 1 MG TAB PO SCH ×3 (09:04→19:41)
[2017-06-08] MEDS: PREGABALIN 50 MG CAP PO SCH ×3 (09:04→20:57)
[2017-06-08] MEDS: oxyCODONE IR 5 MG TAB PO PRN ×5 (09:04→20:40)
--- NOTE | 2017-06-08 09:11 | HOSPPROG ---
Hospitalist Progress Note Assessment/Plan: # pancreatitis - cont IVF, anti-emetics, IV narcotics via NATIONAL OPELINT ANALYST - possibly d/t depakote - will hold # bipolar - stopped his depakote a few days ago - cont trileptal, seroquel - increased doses yesterday - psychiatry to consult for med management # passive suicidal ideation - contracts for safety with me; I don't think he needs an M1 now - appreciate psychiatry assistance - will request for Zulema Saunders # chronic opiate use - on iv narcotics currently Subjective: ongoing abd pain; many questions regarding narcotic scheduling Objective: Vital Signs Temp Pulse Resp BP Pulse Ox 36.7 C 81 18 134/66 H 94 06/08/17 05:20 06/08/17 06:00 06/08/17 06:00 06/08/17 06:00 06/08/17 06:00 Laboratory Results 06/08/17 05:00 06/08/17 05:00 06/07/17 06/08/17 06/09/17 05:59 05:59 05:59 Intake Total 2970.3 Output Total 1450 Balance 1520.3 high risk on iv narcotics - Physical Exam Constitutional: no apparent distress, appears nourished Cardiovascular: regular rate and rhythym, no murmur, rub, or gallop, systolic murmur Respiratory: no respiratory distress, no rales or rhonchi, clear to auscultation Gastrointestinal: normoactive bowel sounds, other (soft, diffusely TTP, no masses) ICD10 Worksheet Patient Problems: Problems Problem Status Onset Severe depressed bipolar I disorder without psychotic features Active Opioid dependence Acute Pancreatitis, acute Acute Hypoxia Acute Hypoventilation Acute Abdominal pain Acute
[2017-06-08] MEDS: NICOTINE 14 MG/24 HR PATCH TD SCH (10:14)
[2017-06-08] MEDS: OXcarbazepine 300 MG TAB PO SCH ×2 (10:15→19:41)
[2017-06-08] MEDS: BECLOMETHASONE QVAR 80 MDI IH SCH ×2 (10:22→21:49)
[2017-06-08] MEDS ORDERED: FLU VACC QS 2017-18 (3YR+)/PF 0.5 ML SYR (FLUARIX QUAD) IM ONE (15:12)
--- NOTE | 2017-06-08 16:28 | PDMN ---
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
--- NOTE | 2017-06-08 16:28 | PDMN ---
Medical Necessity Medical necessity: Change to IP, as of 06/08/17, per MD; los >2 mn for ongoing eval/tx of pancreatitis requiring IVF, METAL FITTER, anti-emetics, NPO status, psych consult for med management; per progress note 06/08/17
--- NOTE | 2017-06-08 16:28 | PDMN ---
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
[2017-06-08] MEDS: ONDANSETRON DISINTEGRATING 4 MG TAB PO PRN (18:07)
[2017-06-08] MEDS: QUEtiapine FUMARATE 300 MG TAB PO SCH (19:40)
[2017-06-08] MEDS: PROMETHAZINE HCL 25 MG/ML INJ IVP PRN (22:38)
[2017-06-09 05:43] LABS: PLATELET COUNT 108 10^3/uL (150-400)
[2017-06-09] MEDS: BECLOMETHASONE QVAR 80 MDI IH SCH ×2 (09:22→21:54)
[2017-06-09] MEDS: NICOTINE 14 MG/24 HR PATCH TD SCH (09:59)
[2017-06-09] MEDS: NS 1,000 ML IV SCH ×2 (09:59→19:53)
[2017-06-09] MEDS: METHADONE HCL 10 MG TAB PO SCH ×2 (10:01→16:27)
[2017-06-09] MEDS: PREGABALIN 50 MG CAP PO SCH ×3 (10:02→21:52)
[2017-06-09] MEDS: OXcarbazepine 300 MG TAB PO SCH ×2 (10:02→21:50)
[2017-06-09] MEDS: LORazepam 1 MG TAB PO SCH ×3 (10:03→21:51)
[2017-06-09] MEDS: oxyCODONE IR 5 MG TAB PO PRN ×2 (10:51→17:33)
--- NOTE | 2017-06-09 11:54 | HOSPPROG ---
Hospitalist Progress Note Assessment/Plan: # pancreatitis - cont IVF, anti-emetics - possibly d/t depakote - will hold - will try stopping narcotics IV today and PO trial # bipolar - stopped his depakote a few days ago - cont trileptal, zyprexa started today by psychiatry # passive suicidal ideation - contracts for safety with me; I don't think he needs an M1 now - appreciate psychiatry assistance - will request for Zulema Saunders # chronic opiate use - outpatient methadone, additional oxycodone Subjective: ongoing abd pain; seen by psychiatry; wants to eat Objective: Vital Signs Temp Pulse Resp BP Pulse Ox 36.4 C 90 15 145/83 H 95 06/09/17 09:54 06/09/17 09:54 06/09/17 09:54 06/09/17 09:54 06/09/17 09:54 Laboratory Results 06/09/17 05:00 06/09/17 05:00 06/08/17 06/09/17 06/10/17 05:59 05:59 05:59 Intake Total 1154.9 Output Total 1400 Balance -245.1 - Physical Exam Constitutional: no apparent distress Cardiovascular: regular rate and rhythym, no murmur, rub, or gallop Respiratory: no respiratory distress, no rales or rhonchi, clear to auscultation Gastrointestinal: normoactive bowel sounds, other (soft, TTP epigastrum), No guarding, No rebound ICD10 Worksheet Patient Problems: Problems Problem Status Onset Severe depressed bipolar I disorder without psychotic features Active Opioid dependence Acute Pancreatitis, acute Acute Hypoxia Acute Hypoventilation Acute Abdominal pain Acute
[2017-06-09] MEDS: ONDANSETRON DISINTEGRATING 4 MG TAB PO PRN ×2 (12:19→17:34)
[2017-06-09] MEDS: ACETAMINOPHEN 325 MG TAB PO PRN (12:20)
[2017-06-09] MEDS: OLANZapine DISINTEGR 5 MG TAB PO PRN (12:49)
[2017-06-09] MEDS ORDERED: NALOXONE HCL 0.4 MG/ML INJ IVP PRN (12:52)
[2017-06-09] MEDS: HYDROmorphONE/DILAUDID 6 MG/30 ML PCA IV PRN ×3 (13:05→22:00)
--- NOTE | 2017-06-09 16:48 | BCON ---
[f rep st] BEHAVIORAL HEALTH CONSULTATION DATE OF CONSULTATION: 06/08/2017. FOLLOW-UP VISIT: 06/09/2017. REFERRING PHYSICIAN: Lg Rodriguez MD DATE OF CONSULTATION REQUEST: 06/07/2017. REASON FOR CONSULTATION: Evaluate patient's psychiatric medications and recommend alternative medications for psychiatric management, since with presumed pancreatitis due to Depakote. BRIEF HISTORY: [facility] previous [facility]. Records reviewed. Discussed with primary team. Spoke with outpatient psychiatrist Dr. Eagle Hill for collateral on 06/09/17. Patient seen and evaluated for initial consult on 06/08, and again for follow- up visit on 06/09. The patient is a 47-year-old male with a history of personality disorder and chronic opiate use, who was admitted d with acute pancreatitis. Patient has reported no longer drinking alcohol for a long period of time, is status post cholecystectomy, and it was felt most likely etiology is medication- induced, likely Depakote. Depakote was discontinued, and initial psychiatric recommendation on 06/07 was to increase Seroquel from 400 mg p.o. q.h.s. to 600 mg p.o. q.h.s. and increase Trileptal from 400 mg p.o. b.i.d. to 600 mg p.o. b.i.d. to manage mood. On evaluation on 06/08, patient reported, " I don't know what is going on, the Seroquel makes me go to sleep, but then I wake up and don't know what's going on... I thought an increase would help, but I can't verbalize my thoughts, I feel like I'm babbling and more anxious..." Patient had only received 1 evening of increased Seroquel and complained of no benefit, stating he only slept 4 hours, and he has been chronically suffering from "really bad insomnia. " He states his current medications, notably the Seroquel have not been as helpful as Zyprexa was in the past. "I like Zyprexa better.... I would rather be heavier than suffer like this." He states he was up to 300 pounds on the Zyprexa, but besides this side effect of weight gain, preferred this medication. He states he was off Zyprexa for at least a year after having taken it for 10 years. Reports psychiatric symptoms of being "angry, quick tempered, depressed, fantasy thinking, mistrustful, agitated, paranoid thoughts, I'm afraid to tell you what they are because you might think I've lost my mind." Stated he was not feeling comfortable physically with some pain, and was noted to press the SHIRT SEWER pump while being interviewed to receive his pain medication. "I'm not sure what Trileptal does." Reports a long history of having conflicts with people, "I've always felt like an outsider." And that he has been "trying to improve my social etiquette....I used to be rude, demanding, and not care about anybody.... in the end it only hurt me." He then talked about his outpatient psychiatrist, Dr. Hill, "He sees me at [facility]....he said some horrible things about me and called me a personality disorder." Patient was reassured that having a personality disorder diagnosis was not necessarily negative, however, rather very helpful in identifying typical patterns of reacting to stress and life circumstances, and with this being identified, is likely then that appropriate help can be received, and patient can learn more adaptive coping strategies. Patient felt reassured by this, and became apologetic for his irritability. He reports prior to admission having a couple of weeks of abdominal pain, not sleeping well, having "bad mood" for the past 2 months, notably feeling negative and paranoid about others. He denied any psychotic symptoms except hearing negative voices inside of his head which are chronic and "were more tame on Zyprexa." Although he admits Seroquel helped "kind of at 200 mg, but not this much." Visual hallucinations: None currently, although,"I saw smoke at the end of the wright, then it was gone." He denied any thoughts of harming himself or others. "No, I don't have any of those thoughts." He reported feeling more frustrated, quick tempered, and irritable instead of depressed. Additionally, a frustrating experience with feeling "restless all day and night , walking, have to keep moving, walking the halls up and down, I can't sit still to watch TV..." He states this feeling was very frustrating while at [facility], and was occurring prior to admission as well as having some similar feelings since admission. PAST PSYCHIATRIC HISTORY: Patient has had several different mental health diagnoses in the past, including bipolar, schizoaffective, and malingering, as well as personality disorder. More recently his diagnosis has been personality disorder with histrionic, antisocial, and borderline traits with mood instability related to his personality disorder. He does also have a significant polysubstance use disorder, notably opiate dependence. He has a history of numerous inpatient psychiatric admissions, most recently to [address], January 2016. At that time he was living at [facility], but due to his history of abusing substances, leaving the facility, and not following rules, they would not accept him back unless he were admitted to the locked unit which ultimately he agreed to do. Patient is currently followed by [facility]. Outpatient psychiatrist is Dr. Eagle Hill, who sees the patient at [facility]. Patient does have a history of threatening suicide and reporting multiple different suicidal plans, was noted that it was often felt to be attentional or for secondary gain. He does endorse a history of self-cutting and overdose. PAST MEDICAL HISTORY: Chronic neck and back pain. Reports history of herniated disk, L4-5, and history of 2 left ankle surgeries with chronic left ankle pain and swelling. History of recurrent pancreatitis listed in 2013 as possibly having been due to alcohol and Depakote. Has had cholecystectomy. Degenerative joint disease, fibromyalgia per history. ALLERGIES: Cunard, states rash and hives. NSAIDs causes tongue to swell. Also Haldol, Iodine, and will add Depakote. SUBSTANCE USE HISTORY: History of alcohol use disorder associated with intermittent binge pattern, but not recently. Cannabis use disorder, daily when available. Also has history of opiate med seeking and benzodiazepine- seeking behavior. SOCIAL HISTORY: Patient is currently residing at [facility], and had been on the locked unit since January 2016, recently moved to unlocked unit approximately 1 month ago per outpatient psychiatrist, Dr. Hill. Patient is supported by [facility]. He is a father of 2 children, a daughter age 21, a son age 8. Both live in [place] with family on their mother's side. He does not identify a clear support system, and has limited social supports. He is estranged from a brother , and lived with his mother intermittently until she nearly 5 years ago. CURRENT SUBSTANCE USE: Patient reports smoking cigarettes, at least half pack per day, endorses daily THC use, taking "about 4-6 hits a day, it is pretty strong." He consistently denied any alcohol use or any other illicit substances. MENTAL STATUS EXAM: On evaluation, patient was reclined in hospital bed with head elevated and wearing hospital gown, soft collar neck brace to protect IV, resting in bed. Eye contact was good, behavior was generally cooperative with some mild increased psychomotor activity, shifting in bed at times, and pressing SHIRT SEWER pump button. Speech was normal volume during interview, at times increased with expression of frustration, speech rate was normal, not pressured. Mood was, "I feel mistrustful, agitated, angry, quick tempered, depressed, and have fantasy thinking." He admits presently feeling anxious and frustrated, stating he has "a lot of other stressors going on" which he declined to elaborate. Affect was somewhat anxious. He expressed concern that his outpatient psychiatrist had warned me not to talk with him or had reported bad things about him. Patient was reassured that this was not the case, and patient acknowledged that he tended towards paranoid feelings and mistrust of others. He denied any suicidal ideation or thoughts of harming others. Thoughts process was rambling, over inclusive, and ranged often from expressing frustration with everything occurring around him to apologetic about his reactions and lack of frustration tolerance. There was no overt delusional thinking, and he did not appear responding to internal stimuli. He denied any current auditory or visual hallucinations, although does report intermittently experiencing voices inside his head that were negative and degrading. Insight was limited. Judgment seemed limited, concrete. Cognition seemed conversationally intact. IMPRESSION: Patient is a 47-year-old male with acute pancreatitis apparently due to Depakote. He has a long psychiatric history, predominantly personality disorder with histrionic, borderline, and antisocial traits with mood instability and poor affect regulation related to his personality disorder , also with long history of substance use disorder, including opiates, benzodiazepines, cannabis, and a history of alcohol use in reported remission. He has also had a history of suspected malingering with over reporting of symptoms, pain medication-seeking behavior, and threatening suicide for secondary gain. Given documented evidence of pancreatitis, he has a valid reason for an increase in his pain medications at this time. He also reports symptoms suggestive of akathisia, which have been very frustrating to him and add to his anxiety, irritability and discomfort. DIAGNOSIS: Unspecified mood disorder, unspecified personality disorder with histrionic, borderline, and antisocial traits, opiate use disorder, anxiolytic use disorder, alcohol use disorder by history and reported remission, cannabis use disorder unspecified, acute pancreatitis and chronic pain. Limited social support. On disability. Chronic medical and mental health illness, limited/ impaired coping strategies. RECOMMENDATIONS: -Will add Depakote as allergy. Patient does have history of pancreatitis, and in past records, a previous pancreatitis diagnosis in 2012 was presumed due to Depakote. Per outpatient psychiatrist, patient had been restarted on Depakote approximately 4-6 weeks ago. -Continue with increased Trileptal 600 mg p.o. b.i.d. -Continue Seroquel increased to 600 mg p.o. q.h.s. Will try for one more night. Patient agreed, but stated if he didn't find it helpful, would really like to be put back on Olanzapine which he found helpful in the past despite weight gain. Would start at 10mg q.h.s. with 5mg b.i.d. p.r.n. -Discontinue any medications which could cause/contribute to akathisia, notably D-2 blocking antiemetics. -Note extensive opiate abuse history and his tendency to use/request more opiates than needed. Monitor objectively and subjectively with clear limits and plan for taper as clinically indicated. Home medication was Methadone 10mg b.i.d. Would try to get close to this prior to discharge, if possible. Prior records note that patient has a history of respiratory depression with oxygen saturations into the low mid 80s on higher doses of pain medications and benzodiazepines, but despite this, had argued vehemently to not taper down on his benzodiazepines or opiates. Thank you for allowing me to consult. We will continue to follow this patient with you during his hospital stay and make recommendations as needed. Feel free to call with any further questions. /[id number]/MODL MTDD
[2017-06-09] MEDS: OLANZapine DISINTEGR 10 MG TAB PO SCH (21:51)
[2017-06-10] MEDS: oxyCODONE IR 5 MG TAB PO PRN ×4 (00:02→18:16)
[2017-06-10] MEDS: ONDANSETRON 4 MG/2 ML VIAL IVP PRN (00:02)
[2017-06-10] MEDS: NS 1,000 ML IV SCH (05:37)
[2017-06-10] MEDS: ONDANSETRON DISINTEGRATING 4 MG TAB PO PRN ×2 (05:37→14:28)
[2017-06-10] MEDS: HYDROmorphONE/DILAUDID 6 MG/30 ML PCA IV PRN ×2 (06:07→10:35)
[2017-06-10] MEDS: OXcarbazepine 300 MG TAB PO SCH ×2 (08:46→21:02)
[2017-06-10] MEDS: OLANZapine DISINTEGR 5 MG TAB PO PRN ×2 (08:46→15:55)
[2017-06-10] MEDS: NICOTINE 14 MG/24 HR PATCH TD SCH (08:46)
[2017-06-10] MEDS: METHADONE HCL 10 MG TAB PO SCH ×2 (08:46→17:16)
[2017-06-10] MEDS: LORazepam 1 MG TAB PO SCH ×3 (08:47→21:03)
[2017-06-10] MEDS: PREGABALIN 50 MG CAP PO SCH ×3 (08:47→21:02)
[2017-06-10] MEDS: BECLOMETHASONE QVAR 80 MDI IH SCH ×2 (08:56→21:17)
--- NOTE | 2017-06-10 14:56 | HOSPPROG ---
Hospitalist Progress Note Assessment/Plan: # acute on chronic pancreatitis - previous gaby/Etoh - possibly d/t depakote - now listed as allergy - advance diet, reduce narcotics - restart enzymes # bipolar - better back on Zyprexa - increase Trileptal, DC Depakote # chronic opiate use - outpatient methadone, additional oxycodone - longstanding history of drug seeking behaviour # Personality disorder / TBI -does well with setting limits Subjective: very hungry, wants to eat Objective: Vital Signs Temp Pulse Resp BP Pulse Ox 37.0 C 89 18 119/80 91 L 06/10/17 14:12 06/10/17 14:12 06/10/17 14:12 06/10/17 14:12 06/10/17 14:12 Laboratory Results 06/09/17 05:00 06/10/17 05:00 06/09/17 06/10/17 06/11/17 05:59 05:59 05:59 Intake Total 1154.9 2224.7 Output Total 1400 1200 500 Balance -245.1 1024.7 -500 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 - Physical Exam Constitutional: no apparent distress, appears nourished, not in pain Cardiovascular: regular rate and rhythym, no murmur, rub, or gallop Respiratory: no respiratory distress, no rales or rhonchi, clear to auscultation Gastrointestinal: normoactive bowel sounds, soft, non-tender abdomen, no palpable masses Skin: no rashes or abrasions, no fluctuance, no induration Neurologic: AAOx3, sensation intact bilaterally Psychiatric: interacting appropriately, not anxious, not encephalopathic, thought process linear ICD10 Worksheet Patient Problems: Problems Problem Status Onset Pancreatitis, acute Acute Severe depressed bipolar I disorder without psychotic features Active Abdominal pain Acute Hypoventilation Acute Hypoxia Acute Opioid dependence Acute
--- NOTE | 2017-06-10 16:47 | ASMTCMCOM ---
CM Note CM Note Notes: Plan remains for pt to return to [place] at [place]. Date Signed: 06/10/2017 04:46 PM Electronically Signed By:Nina Sanchez LCSW
--- NOTE | 2017-06-10 16:47 | ASMTCMCOM ---
CM Note CM Note Notes: Plan remains for pt to return to [place] at [place]. Date Signed: 06/10/2017 04:46 PM Electronically Signed By:Nina Sanchez LCSW
--- NOTE | 2017-06-10 16:47 | ASMTCMCOM ---
CM Note CM Note Notes: Plan remains for pt to return to [place] at [place]. Date Signed: 06/10/2017 04:46 PM Electronically Signed By:Nina Sanchez LCSW
[2017-06-10] MEDS: LIPASE 24,000/AMYLASE/PROTEASE (CREON) 1 CAP PO SCH (17:16)
[2017-06-10] MEDS: OLANZapine DISINTEGR 10 MG TAB PO SCH (21:03)
[2017-06-10] MEDS: ACETAMINOPHEN 325 MG TAB PO PRN (21:53)
[2017-06-11] MEDS: oxyCODONE IR 5 MG TAB PO PRN ×2 (05:10→11:04)
[2017-06-11] MEDS: METHADONE HCL 10 MG TAB PO SCH (08:51)
[2017-06-11] MEDS: OXcarbazepine 300 MG TAB PO SCH (08:51)
[2017-06-11] MEDS: LORazepam 1 MG TAB PO SCH (08:52)
[2017-06-11] MEDS: LIPASE 24,000/AMYLASE/PROTEASE (CREON) 1 CAP PO SCH (08:52)
[2017-06-11] MEDS: NICOTINE 14 MG/24 HR PATCH TD SCH (08:52)
[2017-06-11] MEDS: PREGABALIN 50 MG CAP PO SCH (08:52)
[2017-06-11 09:01] VITALS: BP 122/92; PULSE 79; TEMP 98.5; O2SAT 93
--- NOTE | 2017-06-11 09:34 | PDIAF ---
- Diagnosis Diagnosis: acute pancreatitis Code Status: Full Code - Medication Management Discharge Medications: Medications to Continue on Transfer Beclomethasone Qvar 80 [Qvar 80 (*)] 1 puffs IH BIDI 08/09/16 [Last Taken 21:00] LORazepam [Ativan (*)] 1 mg PO TID 06/07/17 [Last Taken 06/06/17 21:00] Lipase 24,000/Amylase/Protease [Creon 24 (*)] 1 cap PO TIDMEAL 06/07/17 [Last Taken 06/06/17 18:00] Methadone HCl [Methadone HCl 10 mg (*)] 10 mg PO BID@06/07/17 [Last Taken 06/06/17 17:00] Pregabalin [Lyrica 50mg (*)] 50 mg PO TID 06/07/17 [Last Taken 06/06/17 21:00] OLANZapine DISINTEGR [ZyPREXA ZYDIS (*)] 5 mg PO Q6H PRN #60 tab 06/11/17 [Last Taken Unknown] OLANZapine DISINTEGR [ZyPREXA ZYDIS (*)] 10 mg PO HS #30 tab 06/11/17 [Last Taken Unknown] OXcarbazepine [Trileptal 300mg (*)] 600 mg PO BID #120 tab 06/11/17 [Last Taken Unknown] Discharge Medications: Refer to the Discharge Home Medication list for PRN reason. - Orders Diet Recommendation: no restrictions on diet Additional: Add Depakote to allergy list. change seroquel to zyprexa per med list. increase trileptal - Follow Up Care Current Providers and Referrals: Jennifer Amin PA [Primary Care Provider] - As per Instructions
--- NOTE | 2017-06-11 09:54 | WOCRNPDOC ---
WOCRN Advanced Assessment Note - Skin Integrity Problem, Advanced Assess Left Medial Back Abrasion Dressing Type: Open to Air Exudate Amount: None Exudate Characteristic(s): None Integumentary Issue Intervention: Dressing Applied, Silver Gel Applied Shelli Wound Tissue: Blanching, Erythema Shelli Wound Swelling: Mild Wound Bed Color: Brown Wound Bed Constitution: Scab Site Measurement - Head-to-Toe Length X Width X Depth (cm): [id number] Skin Integrity Problem Comment: Intact, dry scab noted over L lateral mid-back, no exudate or fluctuance. Patient reports having a Band-aid over this site previously; blanching erythema periwound, in the shape of previous dressing, is indicative of a mild, contact dermatitis from adhesive. Site cleansed, skin prep applied periwound, and Silvasorb gel applied to scab to confer some antimicrobial benefit. Applied Allevyn Life dressing over wound, which has silicone border and is less likely to cause a reaction in the periwound skin. support team assoc Renu present and assisting. Wound care does not need to follow this patient going forward.
--- NOTE | 2017-06-11 09:54 | WOCRNPDOC ---
WOCRN Advanced Assessment Note - Skin Integrity Problem, Advanced Assess Left Medial Back Abrasion Dressing Type: Open to Air Exudate Amount: None Exudate Characteristic(s): None Integumentary Issue Intervention: Dressing Applied, Silver Gel Applied Shelli Wound Tissue: Blanching, Erythema Shelli Wound Swelling: Mild Wound Bed Color: Brown Wound Bed Constitution: Scab Site Measurement - Head-to-Toe Length X Width X Depth (cm): [id number] Skin Integrity Problem Comment: Intact, dry scab noted over L lateral mid-back, no exudate or fluctuance. Patient reports having a Band-aid over this site previously; blanching erythema periwound, in the shape of previous dressing, is indicative of a mild, contact dermatitis from adhesive. Site cleansed, skin prep applied periwound, and Silvasorb gel applied to scab to confer some antimicrobial benefit. Applied Allevyn Life dressing over wound, which has silicone border and is less likely to cause a reaction in the periwound skin. acting teacher Renu present and assisting. Wound care does not need to follow this patient going forward.
--- NOTE | 2017-06-11 09:54 | WOCRNPDOC ---
WOCRN Advanced Assessment Note - Skin Integrity Problem, Advanced Assess Left Medial Back Abrasion Dressing Type: Open to Air Exudate Amount: None Exudate Characteristic(s): None Integumentary Issue Intervention: Dressing Applied, Silver Gel Applied Shelli Wound Tissue: Blanching, Erythema Shelli Wound Swelling: Mild Wound Bed Color: Brown Wound Bed Constitution: Scab Site Measurement - Head-to-Toe Length X Width X Depth (cm): [id number] Skin Integrity Problem Comment: Intact, dry scab noted over L lateral mid-back, no exudate or fluctuance. Patient reports having a Band-aid over this site previously; blanching erythema periwound, in the shape of previous dressing, is indicative of a mild, contact dermatitis from adhesive. Site cleansed, skin prep applied periwound, and Silvasorb gel applied to scab to confer some antimicrobial benefit. Applied Allevyn Life dressing over wound, which has silicone border and is less likely to cause a reaction in the periwound skin. billing machine operator Renu present and assisting. Wound care does not need to follow this patient going forward.
[2017-06-11] MEDS: BECLOMETHASONE QVAR 80 MDI IH SCH (09:57)
[2017-06-11 10:03] VITALS: RESP 16
--- NOTE | 2017-06-11 10:44 | ASMTCMCOM ---
CM Note CM Note Notes: Chart reviewed, Per MD patient medically cleared for dc back to [facility]. Referral and all information sent to [facility] per [employer]scripts. Awaiting return call from facility to arrange transportation. CM available should other needs arise. Date Signed: 06/11/2017 10:43 AM Electronically Signed By:Fatou Horton RN
--- NOTE | 2017-06-11 10:44 | ASMTCMCOM ---
CM Note CM Note Notes: Chart reviewed, Per MD patient medically cleared for dc back to [facility]. Referral and all information sent to [facility] per [employer]scripts. Awaiting return call from facility to arrange transportation. CM available should other needs arise. Date Signed: 06/11/2017 10:43 AM Electronically Signed By:Fatou Horton RN
--- NOTE | 2017-06-11 16:16 | GDS ---
[f rep st] DISCHARGE SUMMARY DISCHARGE DIAGNOSES: 1. Recurrent acute pancreatitis, suspect due to Depakote. 2. Bipolar. 3. Personality disorder. 4. Chronic pain with continuous narcotic dependency. HISTORY: The patient is a 47-year-old male, who lives at [facility]. He has had many admissions for pancreatitis. We feel the pancreatitis is caused by Depakote, which his psychiatrist currently reinitiates at [facility]. We highly recommend Depakote be listed a s an allergy. He also previously had cholecystitis, and used to drink alcohol that contributed to [facility] current pancreatitis episodes. He was treated with conservative therapy and did improve, was able to tolerate a regular diet, and then come off any acute narcotics. Due to the discontinuation of Depakote, as well as other dissatisfaction he had with his psychiatric med regimen, we did do an inpatient psychiatry consultation, in order to discontinue the Depakote, [facility] Trileptal was increased to 600 mg p.o. b.i.d. The patient prefers Zyprexa to Seroquel, and wished to change his antipsychotic back to Zyprexa. Zyprexa was initiated at 10 mg p.o. q.h.s., as well as 5 mg p.o. q.6 hours as needed. The patient feels much better and is happy with his new regimen. The patient has known drug seeking behavior due to opioids, he was initially on IV Dilaudid pump, but that was discontinued once he became hungry and desired to eat, and he could rapidly advance his t, and go back to his baseline opiate prescription. DISCHARGE MEDICATIONS: Please see computerized record for full detailed list. New medications: 1. Zyprexa 10 mg p.o. q.h.s. 2. Trileptal increase to 600 mg p.o. b.i.d. 3. Zyprexa 5 mg p.o. q.6 hours as needed. Continued medications: 1. Methadone 10 mg p.o. b.i.d. 2. Lyrica 50 mg p.o. t.i.d. 3. Ativan 1 mg p.o. t.i.d. 4. QVAR 1 puff b.i.d. 5. Creon 24 one cap p.o. t.i.d. with meals. Discontinued medications: 1. Seroquel. 2. Depakote. ADDITIONAL DISCHARGE INSTRUCTIONS: 1. Return to [facility]. 2. Add Depakote to the allergy list. Greater than 30 minutes of time spent arranging this discharge. Patient seen and examined by me on d ay of discharge. /[id number]/MODL
--- NOTE | 2017-06-11 16:16 | GDS ---
[f rep st] DISCHARGE SUMMARY DISCHARGE DIAGNOSES: 1. Recurrent acute pancreatitis, suspect due to Depakote. 2. Bipolar. 3. Personality disorder. 4. Chronic pain with continuous narcotic dependency. HISTORY: The patient is a 47-year-old male, who lives at [place]. He has had many admissions for pancreatitis. We feel the pancreatitis is caused by Depakote, which his psychiatrist currently reinitiates at [facility] [place]. We highly recommend Depakote be listed a s an allergy. He also previously had cholecystitis, and used to drink alcohol that contributed to [facility] current pancreatitis episodes. He was treated with conservative therapy and did improve, was able to tolerate a regular diet, and then come off any acute narcotics. Due to the discontinuation of Depakote, as well as other dissatisfaction he had with his psychiatric med regimen, we did do an inpatient psychiatry consultation, in order to discontinue the Depakote, [facility] Trileptal was increased to 600 mg p.o. b.i.d. The patient prefers Zyprexa to Seroquel, and wished to change his antipsychotic back to Zyprexa. Zyprexa was initiated at 10 mg p.o. q.h.s., as well as 5 mg p.o. q.6 hours as needed. The patient feels much better and is happy with his new regimen. The patient has known drug seeking behavior due to opioids, he was initially on IV Dilaudid pump, but that was discontinued once he became hungry and desired to eat, and he could rapidly advance his t, and go back to his baseline opiate prescription. DISCHARGE MEDICATIONS: Please see computerized record for full detailed list. New medications: 1. Zyprexa 10 mg p.o. q.h.s. 2. Trileptal increase to 600 mg p.o. b.i.d. 3. Zyprexa 5 mg p.o. q.6 hours as needed. Continued medications: 1. Methadone 10 mg p.o. b.i.d. 2. Lyrica 50 mg p.o. t.i.d. 3. Ativan 1 mg p.o. t.i.d. 4. QVAR 1 puff b.i.d. 5. Creon 24 one cap p.o. t.i.d. with meals. Discontinued medications: 1. Seroquel. 2. Depakote. ADDITIONAL DISCHARGE INSTRUCTIONS: 1. Return to [facility] [place]. 2. Add Depakote to the allergy list. Greater than 30 minutes of time spent arranging this discharge. Patient seen and examined by me on d ay of discharge. /[id number]/MODL
--- NOTE | 2017-06-11 16:16 | GDS ---
[f rep st] DISCHARGE SUMMARY DISCHARGE DIAGNOSES: 1. Recurrent acute pancreatitis, suspect due to Depakote. 2. Bipolar. 3. Personality disorder. 4. Chronic pain with continuous narcotic dependency. HISTORY: The patient is a 47-year-old male, who lives at [place]. He has had many admissions for pancreatitis. We feel the pancreatitis is caused by Depakote, which his psychiatrist currently reinitiates at [place]. We highly recommend Depakote be listed a s an allergy. He also previously had cholecystitis, and used to drink alcohol that contributed to [facility] current pancreatitis episodes. He was treated with conservative therapy and did improve, was able to tolerate a regular diet, and then come off any acute narcotics. Due to the discontinuation of Depakote, as well as other dissatisfaction he had with his psychiatric med regimen, we did do an inpatient psychiatry consultation, in order to discontinue the Depakote, [facility] Trileptal was increased to 600 mg p.o. b.i.d. The patient prefers Zyprexa to Seroquel, and wished to change his antipsychotic back to Zyprexa. Zyprexa was initiated at 10 mg p.o. q.h.s., as well as 5 mg p.o. q.6 hours as needed. The patient feels much better and is happy with his new regimen. The patient has known drug seeking behavior due to opioids, he was initially on IV Dilaudid pump, but that was discontinued once he became hungry and desired to eat, and he could rapidly advance his t, and go back to his baseline opiate prescription. DISCHARGE MEDICATIONS: Please see computerized record for full detailed list. New medications: 1. Zyprexa 10 mg p.o. q.h.s. 2. Trileptal increase to 600 mg p.o. b.i.d. 3. Zyprexa 5 mg p.o. q.6 hours as needed. Continued medications: 1. Methadone 10 mg p.o. b.i.d. 2. Lyrica 50 mg p.o. t.i.d. 3. Ativan 1 mg p.o. t.i.d. 4. QVAR 1 puff b.i.d. 5. Creon 24 one cap p.o. t.i.d. with meals. Discontinued medications: 1. Seroquel. 2. Depakote. ADDITIONAL DISCHARGE INSTRUCTIONS: 1. Return to [place]. 2. Add Depakote to the allergy list. Greater than 30 minutes of time spent arranging this discharge. Patient seen and examined by me on d ay of discharge. /[id number]/MODL
== END 2017-06-11 13:01 | DRG 439 ==
LOC: EDUNIT# → INTOOBSV 05:31 → F1N 06:30 → OBSVTOIN 06-08 14:57
PROVIDERS: ADMIT Student in an Organized Health Care Education/Training Program; ATTEND Student in an Organized Health Care Education/Training Program
CPT/HCPCS: 96374; G0008; G0378; J1170; J2405; J2550; J3010

== ENCOUNTER 2017-06-27 12:46 | Emergency (ER) | payer OTHER, MEDICAID ==
--- NOTE | 2017-06-27 12:59 | EDPHY ---
H & P Stated Complaint: ABD Pain - Personal History Current Tetanus Diphtheria and Acellular Pertussis (TDAP): Yes Tetanus Vaccine Date: 2009 - Medical/Surgical History Hx Asthma: No Hx Chronic Respiratory Disease: No Hx Diabetes: No Hx Cardiac Disease: No Hx Renal Disease: No Hx Cirrhosis: No Hx Alcoholism: Yes Hx HIV/AIDS: No Hx Splenectomy or Spleen Trauma: No Other PMH: PMH- Agoraphobia, Bipolar, ADHD, Chronic pain, disc L5-S1, PANCREATITIS,ANXIETY, ETOH ABUSE,OPIOD DEPENDANCE, SCHIZOAFFECTIVE,INSOMNIA, NEUROPATHY,MUSCLE WEAKNESS, MUSCLE SPASM, TRAUMATIC BRAIN INJURY, right ankle repair. Liver failure - Social History Smoking Status: Heavy smoker Time Seen by Provider: 06/27/17 12:51 HPI/ROS: CHIEF COMPLAINT: "everywhere" abdominal pain x2 days HISTORY OF PRESENT ILLNESS: 47-year-old male history of recurrent pancreatitis , chronic opiate dependence, arrives from [facility]. States that he called 911 because they are not giving him the medication he wants at [facility], he is complaining of "everywhere "abdominal pain for the past 2 days with associated nausea. No vomiting. Bowel movements slightly looser than usual no melena or hematochezia. No chest pain. No dyspnea. PRIMARY CARE PROVIDER: REVIEW OF SYSTEMS: A ten point review of systems was performed and is negative with the exception of the items mentioned in the HPI PAST MEDICAL & SURGICAL HISTORY: Pancreatitis, recurrent. Personality disorder. Bipolar disorder. Chronic pain with continued narcotic dependency. SOCIAL HISTORY: currently living at [facility] PHYSICAL EXAM (Prior to examination, patient consented to physical exam, hands were washed and my usual and customary physical exam procedures followed) 1) GENERAL: Well-developed, well-nourished, alert and oriented. Crying. 2) HEAD: Normocephalic, atraumatic 3) HEENT: Pupils equal, round, reactive to light bilaterally. Sclera anicteric. Nasopharynx, oropharynx, clear, no lesions. Moist mucous membrane Ears bilaterally with normal tympanic membranes. 4) NECK: Full range of motion, no meningeal signs. 5) LUNGS: Clear auscultation bilaterally, no wheezes, no rhonchi, no retractions. 6) HEART: Regular rate and rhythm, no murmur, no heave, no gallop. 7) ABDOMEN: Tender to palpation all quadrants with light touch. ], 8) MUSCULOSKELETAL: Moving all extremities, no focal areas of tenderness, no obvious trauma. No peripheral edema or discoloration. 9) BACK: No CVA tenderness, no midline vertebral tenderness, no fluctuance, no step-off, no obvious trauma, no visual or palpable abnormality. 10) SKIN: No rash, no petechiae. 11) : Normal male external genitalia bilateral testicles nontender bilateral cremasteric reflex present and brisk, no high-riding testicle DIFFERENTIAL DIAGNOSIS: My differential diagnosis includes, but is not limited to, acute appendicitis, acute cholecystitis, bowel obstruction, acute pancreatitis, testicular torsion, gastritis and urinary tract infection. The patient understands that this diagnosis is provisional and can never be 100% accurate. This is a partial list of diagnoses considered. These considerations are based on history, physical exam, past history and reassessment. (Elliot Marmolejo) Constitutional: Initial Vital Signs Temperature (C) 36.6 C 06/27/17 12:54 Heart Rate 85 06/27/17 12:54 Respiratory Rate 16 06/27/17 12:54 Blood Pressure 147/92 H 06/27/17 12:54 O2 Sat (%) 93 06/27/17 12:54 O2 Delivery Mode Room Air Allergies/Adverse Reactions: divalproex sodium [From Depakote] Allergy (Severe, Verified 06/27/17 12:54) pancreatitis haloperidol lactate [From Haldol] Allergy (Severe, Verified 06/27/17 12:54) TONGUE SWELLING naproxen Allergy (Severe, Verified 06/27/17 12:54) adhesive tape Allergy (Verified 06/27/17 12:54) ibuprofen [From Motrin] Allergy (Verified 06/27/17 12:54) iodine Allergy (Verified 06/27/17 12:54) lactose Allergy (Verified 06/27/17 12:54) lithium Allergy (Verified 06/27/17 12:54) Rash Home Medications: Medication Instructions Recorded Beclomethasone Qvar 80 [Qvar 80 1 puffs IH BIDI 08/09/16 (*)] LORazepam [Ativan (*)] 1 mg PO TID 06/07/17 Lipase 24,000/Amylase/Protease 1 cap PO TIDMEAL 06/07/17 [Creon 24 (*)] Methadone HCl [Methadone HCl 10 mg 10 mg PO BID@06/07/17 (*)] Pregabalin [Lyrica 50mg (*)] 50 mg PO TID 06/07/17 OLANZapine DISINTEGR [ZyPREXA 5 mg PO Q6H PRN #60 tab 06/11/17 ZYDIS (*)] OLANZapine DISINTEGR [ZyPREXA 10 mg PO HS #30 tab 06/11/17 ZYDIS (*)] OXcarbazepine [Trileptal 300mg (*)] 600 mg PO BID #120 tab 06/11/17 Medical Decision Making ED Course/Re-evaluation: 2:20 p.m.: manager lean has spoke with the patient as well as Kadie Tyson. They request that he not be given opiates or benzodiazepines in the emergency department noting that they are progressively weaning his methadone have a long- term plan for pain control for him. He notes anaphylactic like reaction to Toradol in the past. Discussed with him his laboratory studies today including normal lipase. Doubt acute pancreatitis. He was re-examined at this time abdomen is soft no guarding no McBurney's point pain. Doubt acute surgical abdominal pathology, doubt acute pancreatitis, doubt acute appendicitis. Plan will be discharge back to [facility]. He has expressed his displeasure now receiving medication while in the emergency department.Care of patient under supervision of secondary supervising physician Dr Zavala with whom I discussed case . (Elliot Marmolejo) The patient was evaluated and managed by the physician pharmacy innovation assistant. I have reviewed this chart and I agree with the findings and plan of care as documented , as indicated by my signature. I am the secondary supervising physician. ( Khushboo Zavala) - Data Points Laboratory Results: Laboratory Results 06/27/17 13:50 06/27/17 13:50 Medications Given: Discontinued Medications Acetaminophen (Tylenol 160mg/5ml Oral Liquid) 1,000 mg PO EDNOW ONE Stop: 06/27/17 14:55 Last Admin: 06/27/17 15:07 Dose: 1,000 mg Sodium Chloride (Ns) 1,000 mls @ 0 mls/hr IV ONCE ONE PRN Reason: Wide Open Stop: 06/27/17 13:08 Last Admin: 06/27/17 13:54 Dose: 1,000 mls Lorazepam (Ativan Injection) 1 mg IVP EDNOW ONE Stop: 06/27/17 13:08 Last Admin: 06/27/17 13:55 Dose: Not Given Ondansetron HCl (Zofran) 4 mg IVP EDNOW ONE Stop: 06/27/17 13:08 Last Admin: 06/27/17 13:54 Dose: 4 mg Departure - Departure Disposition: Home, Routine, Self-Care Clinical Impression: Abdominal pain Qualifiers: Abdominal location: generalized Qualified Code(s): R10.84 - Generalized abdominal pain Condition: Good Instructions: Abdominal Pain (ED) Referrals: [facility],. [Clinic] - As per Instructions
[2017-06-27] MEDS ORDERED: LORazepam 2 MG/ML INJ IVP ONE (13:07)
[2017-06-27] MEDS ORDERED: NS 1,000 ML IV ONE (13:07)
[2017-06-27] MEDS ORDERED: ONDANSETRON 4 MG/2 ML VIAL IVP ONE (13:07)
[2017-06-27 13:56] LABS: % IMMATURE GRANULYOCYTES 0.2 % (0.0-1.1); ABSOLUTE IMMATURE GRANULOCYTES 0.01 10^3/uL (0.00-0.10); ADD DIFF? NO; ADD MORPH? NO; ADD SCAN? NO; ATYPICAL LYMPHOCYTE FLAG 0 (0-99); FRAGMENT RBC FLAG 0 (0-99); HEMATOCRIT 44.8 % (40.0-51.0); LEFT SHIFT FLG 0 (0-99); LIPEMIA HEMOLYSIS FLAG 90 (0-99); MEAN CELL HEMOGLOBIN 31.7 pg (27.9-34.1); MEAN CELL HEMOGLOBIN CONCENTR. 35.7 g/dL (32.4-36.7); MEAN CELL VOLUME 88.7 fL (81.5-99.8); MEAN PLATELET VOLUME 10.9 fL (8.7-11.7); PLATELET CLUMPS FLAG 10 (0-99); PLATELET COUNT 143 10^3/uL (150-400); RED BLOOD CELL COUNT 5.05 10^6/uL (4.40-6.38); RED CELL DISTRIBUTION WIDTH 13.3 % (11.5-15.2)
[2017-06-27 14:14] LABS: ALANINE AMINOTRANSFERASE 30 IU/L (21-72); ALBUMIN 4.1 g/dL (3.5-5.0); ALKALINE PHOSPHATASE 63 IU/L (38-126); ANION GAP 13 mEq/L (8-16); ASPARTATE AMINOTRANSFERASE 18 IU/L (17-59); BILIRUBIN,TOTAL 0.6 mg/dL (0.1-1.4); BILIRUBIN-UNCONJUGATED 0.6 mg/dL (0.0-1.1); CALCIUM 9.2 mg/dL (8.5-10.4); CARBON DIOXIDE 21 mEq/l (22-31); CHLORIDE 106 mEq/L (97-110); GLOMERULAR FILTRATION RATE > 60; GLUCOSE 90 mg/dL (70-100); POTASSIUM 4.5 mEq/L (3.5-5.2); SODIUM 140 mEq/L (134-144); TOTAL PROTEIN 6.5 g/dL (6.3-8.2)
[2017-06-27] MEDS ORDERED: HALOPERIDOL LACT 5 MG/ML INJ IVP ONE (14:24)
[2017-06-27] MEDS ORDERED: ACETAMINOPHEN 160 MG/5 ML UDCUP PO ONE (14:54)
[2017-06-27] MEDS ORDERED: ACETAMINOPHEN 500 MG TAB ONE (14:56)
--- NOTE | 2017-06-27 15:01 | ASMTCMCOM ---
CM Note CM Note Notes: Patient arrived to ED from [facility] after he call 911 because he couldn't wait to hear back from his PCP's office re:abdominal pain. Spoke with Pennie at [facility] ([phone]) and she faxed over patient's most updated medication list; this was received and provided to the ED provider. Patient's ED workup was negative and patient is stable for discharge back to [facility]. Spoke with Daja at [facility] and they have arranged for a cab to pick patient up and transport back to their facility. Report given to Pennie. CM available for further assistance. Date Signed: 06/27/2017 03:00 PM Electronically Signed By:Lizette Santacruz RN
--- NOTE | 2017-06-27 15:04 | ASDISCHSUM ---
Discharge Information Plan Status:SNF Medically Cleared to Leave: Discharge Date: D/C Disposition:[facility] Facility ADT D/C Disposition:Home, Routine, Self-Care Projected Discharge Date: Transportation at D/C:Taxicab Discharge Delay Reason: Follow-Up Date: Discharge Slot: Final Diagnosis: Placement Information Patient Contact Information Contact Name:STACIJanet Relationship:Daughter Address: Work Phone: City:[place] Alternate Phone: State/Zip Code:[place] Email: Financial Information Financial Class: Primary Plan Desc:MEDICARE OUTPATIENT Primary Plan Number:[id number] Secondary Plan Desc:MEDICA[employer] 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 Spoke with Pennie at [facility] ([phone]) and she faxed over patient's most updated medication list; this was received and provided to the ED provider. Patient's ED workup was negative and patient is stable for discharge back to [facility]. Spoke with Daja at [facility] and they have arranged for a cab to pick patient up and transport back to their facility. Report given to Pennie. CASSANDRA available for further assistance. Date Signed: 06/27/2017 03:00 PM Electronically Signed By:Lizette Santacruz RN [facility] Emergency dept visits in Answers: 3 last 6 months Score: 3 Date Signed: 06/27/2017 03:02 PM Electronically Signed By:Lizette Sjoden, RN Intervention Information
[2017-06-27 15:09] VITALS: BP 126/74; PULSE 81; RESP 14; TEMP 98.2; O2SAT 96
== END 2017-06-27 15:09 | disposition home or self-care (01) ==
LOC: EDUNIT# → EDBD
DX: R10.84 Generalized abdominal pain (principal); F17.200 Nicotine dependence, unspecified, uncomplicated; E86.9 Volume depletion, unspecified
CPT/HCPCS: 96361; 96374; 99284; J2405

== ENCOUNTER 2018-10-20 07:36 | Emergency (ER) | payer OTHER, MEDICAID ==
[2018-10-20] MEDS ORDERED: LORazepam 2 MG/ML INJ IVP ONE (07:38)
--- NOTE | 2018-10-20 07:45 | EDPHY ---
HPI/HX/ROS/PE/MDM Narrative: CHIEF COMPLAINT: Altered mental status HPI: The patient is a 48-year-old male with a history of schizophrenia, polysubstance abuse and frequent ED visits. The patient arrives via EMS after staff at [facility] stated that he was acting very erratically. The patient admits to using meth within the last several days. He also arrives with a package of Kratom, which he states he has been using intermittently. Paramedics noted the patient has been cooperative with them. REVIEW OF SYSTEMS: Unable to obtain reliably secondary to altered mental status. PMH: History of polysubstance abuse, schizophrenia, history of inpatient psychiatric admission. SOCIAL HISTORY: Patient admits to meth use as well as Kratom use. PHYSICAL EXAM: General:Patient is alert, agitated, speaking rapidly and somewhat agitated. ENT:Eyes are normal to inspection. ENT inspection normal. Neck: Normal inspection. Full range of motion. Respiratory:No respiratory distress. Breath sounds normal bilaterally. Cardiovascular: Tachycardic rate. Strong peripheral pulses. Normal cap refill. Abdomen:The abdomen is nontender to palpation. There are no peritoneal signs. There are normal bowel sounds. Back: Normal to inspection. No tenderness to palpation. Skin: Normal color. No rash. Warm and dry. Extremities: Normal appearance. Full range of motion. Neuro: Moving all extremities. No focal deficits. Psychiatric: Patient has pressured, rapid speech, appears somewhat delusional. ED Course: Patient received 2 mg of IV Ativan with good response. 10:30 a.m.: Patient much more common cooperative. He states he would like to go home. At this point I do not think that he is a risk to himself or others. His presentation seems consistent with methamphetamine abuse but I do not think there is indication for holding him against his will, and as he would like to leave we will honor this request. - Data Points Laboratory Results: Laboratory Results 10/20/18 08:45 10/20/18 08:45 10/20/18 10/20/18 08:45 08:45 WBC 11.99 10^3/uL H 10^3/uL (3.80-9.50) RBC 5.05 10^6/uL 10^6/uL (4.40-6.38) Hgb 15.0 g/dL g/dL (13.7-17.5) Hct 44.0 % % (40.0-51.0) MCV 87.1 fL fL (81.5-99.8) MCH 29.7 pg pg (27.9-34.1) MCHC 34.1 g/dL g/dL (32.4-36.7) RDW 13.9 % % (11.5-15.2) Plt Count 178 10^3/uL 10^3/uL (150-400) MPV 11.4 fL fL (8.7-11.7) Neut % (Auto) 82.7 % H % (39.3-74.2) Lymph % (Auto) 9.2 % L % (15.0-45.0) Hand % (Auto) 7.3 % % (4.5-13.0) Eos % (Auto) 0.2 % L % (0.6-7.6) Baso % (Auto) 0.3 % % (0.3-1.7) Nucleat RBC Rel Count 0.0 % % (0.0-0.2) Absolute Neuts (auto) 9.92 10^3/uL H 10^3/uL (1.70-6.50) Absolute Lymphs (auto) 1.10 10^3/uL 10^3/uL (1.00-3.00) Absolute Monos (auto) 0.88 10^3/uL H 10^3/uL (0.30-0.80) Absolute Eos (auto) 0.02 10^3/uL L 10^3/uL (0.03-0.40) Absolute Basos (auto) 0.03 10^3/uL 10^3/uL (0.02-0.10) Absolute Nucleated RBC 0.00 10^3/uL 10^3/uL (0-0.01) Immature Gran % 0.3 % % (0.0-1.1) Immature Gran # 0.04 10^3/uL 10^3/uL (0.00-0.10) Sodium 142 mEq/L mEq/L (135-145) Potassium 3.9 mEq/L mEq/L (3.5-5.2) Chloride 107 mEq/L mEq/L (97-110) Carbon Dioxide 24 mEq/l mEq/l (22-31) Anion Gap 11 mEq/L mEq/L (6-14) BUN 13 mg/dL mg/dL (7-23) Creatinine 1.1 mg/dL mg/dL (0.7-1.3) Estimated GFR > 60 Glucose 118 mg/dL H mg/dL (70-100) Calcium 9.8 mg/dL mg/dL (8.5-10.4) Medications Given: Discontinued Medications Lorazepam (Ativan Injection) 2 mg IVP EDNOW ONE Stop: 10/20/18 07:39 Last Admin: 10/20/18 08:42 Dose: 2 mg General Time Seen by Provider: 10/20/18 07:38 Initial Vital Signs: Initial Vital Signs Temperature (C) 37 C 10/20/18 07:44 Heart Rate 107 H 10/20/18 07:44 Respiratory Rate 24 H 10/20/18 07:44 Blood Pressure 176/112 H 10/20/18 07:44 O2 Sat (%) 95 10/20/18 07:44 O2 Delivery Mode Room Air Allergies/Adverse Reactions: divalproex sodium [From Depakote] Allergy (Severe, Verified 06/27/17 12:54) pancreatitis haloperidol lactate [From Haldol] Allergy (Severe, Verified 06/27/17 12:54) TONGUE SWELLING naproxen Allergy (Severe, Verified 06/27/17 12:54) adhesive tape Allergy (Verified 06/27/17 12:54) ibuprofen [From Motrin] Allergy (Verified 06/27/17 12:54) iodine Allergy (Verified 06/27/17 12:54) lactose Allergy (Verified 06/27/17 12:54) lithium Allergy (Verified 06/27/17 12:54) Rash Home Medications: Medication Instructions Recorded Beclomethasone Qvar 80 [Qvar 80] 1 puffs IH BIDI 08/09/16 LORazepam [Ativan (*)] 1 mg PO TID 06/07/17 Lipase 24,000/Amylase/Protease 1 cap PO TIDMEAL 06/07/17 [Creon 24 (*)] Methadone HCl [Methadone HCl 10 mg 10 mg PO BID@,17 06/07/17 (*)] Pregabalin [Lyrica 50mg (*)] 50 mg PO TID 06/07/17 OLANZapine DISINTEGR [ZyPREXA 5 mg PO Q6H PRN #60 tab 06/11/17 ZYDIS (*)] OLANZapine DISINTEGR [ZyPREXA 10 mg PO HS #30 tab 06/11/17 ZYDIS (*)] OXcarbazepine [Trileptal 300mg (*)] 600 mg PO BID #120 tab 06/11/17 Departure - Departure Disposition: Home, Routine, Self-Care Clinical Impression: Altered mental status, Stimulant abuse Condition: Good Instructions: Polysubstance Abuse (ED) Additional Instructions: Follow-up with your primary doctor within 72 hours. Return to the Emergency Department for fever, chest pain, shortness of breath, increasing pain or other worsening of condition. Referrals: Patient,NotPresent [Unknown] - As per Instructions
[2018-10-20 09:03] LABS: PLATELET COUNT 178 10^3/uL (150-400)
[2018-10-20 10:54] VITALS: BP 149/102
== END 2018-10-20 10:51 | disposition home or self-care (01) ==
LOC: EDUNIT#
DX: R41.82 Altered mental status, unspecified (principal); F15.10 Other stimulant abuse, uncomplicated
CPT/HCPCS: 96374; 99284; J2060

== ENCOUNTER 2018-11-15 16:55 | Emergency (ER) | payer OTHER, MEDICAID ==
[2018-11-15] MEDS ORDERED: CARISOPRODOL 350 MG TAB PO ONE (17:18)
[2018-11-15] MEDS ORDERED: ACETAMINOPHEN 500 MG TAB PO ONE ×2 (17:18→21:53)
[2018-11-15 17:26] LABS: PLATELET COUNT 184 10^3/uL (150-400)
--- NOTE | 2018-11-15 17:32 | EDPHY ---
H & P Stated Complaint: Med clear - Personal History Current Tetanus/Diphtheria Vaccine: Yes Tetanus Vaccine Date: 2009 - Medical/Surgical History Hx Asthma: No Hx Chronic Respiratory Disease: No Hx Diabetes: No Hx Cardiac Disease: No Hx Renal Disease: No Hx Cirrhosis: No Hx Alcoholism: Yes Hx HIV/AIDS: No Hx Splenectomy or Spleen Trauma: No Other PMH: PMH- Agoraphobia, Bipolar, ADHD, Chronic pain, disc L5-S1, PANCREATITIS,ANXIETY, antisocial personality disorder, ETOH ABUSE,OPIOD DEPENDANCE, SCHIZOAFFECTIVE,INSOMNIA, NEUROPATHY,MUSCLE WEAKNESS, MUSCLE SPASM, TRAUMATIC BRAIN INJURY, right ankle repair. Liver failure - Social History Smoking Status: Heavy smoker Time Seen by Provider: 11/15/18 17:05 HPI/ROS: Chief complaint: Mental health hold History of present illness: This is a 48-year-old male brought to the emergency department by police on a mental health hold. According to the mental health hold patient has had homicidal thoughts with threats towards his therapist. Patient was recently at [facility], he left [place]. He has history of bipolar. He has been off of his meds. On my evaluation he denies suicidal ideation. He denies homicidal ideation. He states he was upset with the therapist and just wanted his license number to report him. He does state his chronic neck pain is bothering home otherwise he denies other illness or injury. Review of systems: A 10 point review of systems was obtained and other than described above was negative. (Kurt Sutton) - Physical Exam Exam: General Appearance: Alert, nontoxic. Eyes: Pupils equal and round no pallor or injection. ENT, Mouth: Mucous membranes moist. Respiratory: There are no retractions, lungs are clear to auscultation. Cardiovascular: Regular rate and rhythm. Gastrointestinal: Abdomen is soft and non tender, no masses, bowel sounds normal. Neurological: Alert. Strength and sensation intact. Skin: Warm and dry, no rashes. Musculoskeletal: Extremities are symmetrical, full range of motion. Psychiatric: Patient is slightly agitated. (Kurt Sutton) Constitutional: Initial Vital Signs Temperature (C) 36.8 C 11/15/18 17:08 Heart Rate 78 11/15/18 17:08 Respiratory Rate 18 11/15/18 17:08 Blood Pressure 145/101 H 11/15/18 17:08 O2 Sat (%) 96 11/15/18 17:08 O2 Delivery Mode Room Air Allergies/Adverse Reactions: divalproex sodium [From Depakote] Allergy (Severe, Verified 11/15/18 17:10) pancreatitis haloperidol lactate [From Haldol] Allergy (Severe, Verified 11/15/18 17:10) TONGUE SWELLING naproxen Allergy (Severe, Verified 11/15/18 17:10) adhesive tape Allergy (Verified 11/15/18 17:10) ibuprofen [From Motrin] Allergy (Verified 11/15/18 17:10) iodine Allergy (Verified 11/15/18 17:10) lactose Allergy (Verified 11/15/18 17:10) lithium Allergy (Verified 11/15/18 17:10) Rash Home Medications: Medication Instructions Recorded Beclomethasone Qvar 80 [Qvar 80] 1 puffs IH BIDI 08/09/16 LORazepam [Ativan (*)] 1 mg PO TID 06/07/17 Lipase 24,000/Amylase/Protease 1 cap PO TIDMEAL 06/07/17 [Creon 24 (*)] Methadone HCl [Methadone HCl 10 mg 10 mg PO BID@08,17 06/07/17 (*)] Pregabalin [Lyrica 50mg (*)] 50 mg PO TID 06/07/17 OLANZapine DISINTEGR [ZyPREXA 5 mg PO Q6H PRN #60 tab 06/11/17 ZYDIS (*)] OLANZapine DISINTEGR [ZyPREXA 10 mg PO HS #30 tab 06/11/17 ZYDIS (*)] OXcarbazepine [Trileptal 300mg (*)] 600 mg PO BID #120 tab 06/11/17 Medical Decision Making ED Course/Re-evaluation: Patient seen under the supervision of my secondary supervising physician Dr. Benito Godoy. Patient presents to the emergency department on a mental health hold. He is medically evaluated and cleared for psychiatric evaluation. Psychiatric evaluation has occurred and they are currently seeking inpatient placement for the patient. Care of patient is turned over to my attending physician Dr. Jose Alberto Ortiz at end of shift, 1:00 a.m.. (Kurt Sutton) 0303: Patient accepted at [facility]. EMTALA will be filled out. Appropriate transfer will be set up. Accepted by Dr. Shaw. (Jose Alberto Ortiz) Differential Diagnosis: Included but not limited to polysubstance abuse, anxiety, depression, bipolar, schizophrenia (Kurt Sutton) - Data Points Laboratory Results: Laboratory Results 11/15/18 16:58 11/15/18 16:58 11/15/18 11/15/18 11/15/18 17:30 16:58 16:58 WBC RBC Hgb Hct MCV MCH MCHC RDW Plt Count MPV Neut % (Auto) Lymph % (Auto) [place] % (Auto) Eos % (Auto) Baso % (Auto) Nucleat RBC Rel Count Absolute Neuts (auto) Absolute Lymphs (auto) Absolute Monos (auto) Absolute Eos (auto) Absolute Basos (auto) Absolute Nucleated RBC Immature Gran % Immature Gran # Sodium 142 mEq/L mEq/L (135-145) Potassium 4.0 mEq/L mEq/L (3.5-5.2) Chloride 107 mEq/L mEq/L (97-110) Carbon Dioxide 21 mEq/l L mEq/l (22-31) Anion Gap 14 mEq/L mEq/L (6-14) BUN 12 mg/dL mg/dL (7-23) Creatinine 1.0 mg/dL mg/dL (0.7-1.3) Estimated GFR > 60 Glucose 104 mg/dL H mg/dL (70-100) Calcium 9.5 mg/dL mg/dL (8.5-10.4) Urine Opiates Screen NEGATIVE (NEGATIVE) Urine Barbiturates NEGATIVE (NEGATIVE) Ur Phencyclidine Scrn NEGATIVE (NEGATIVE) Ur Amphetamine Screen NEGATIVE (NEGATIVE) U Benzodiazepines Scrn NON-NEGATIVE H (NEGATIVE) [place] < 0.2 mEq/L L mEq/L (0.6-1.2) Urine Cocaine Screen NEGATIVE (NEGATIVE) U Marijuana (THC) Screen NON-NEGATIVE H (NEGATIVE) Ethyl Alcohol < 10 mg/dL mg/dL (0-10) 11/15/18 16:58 WBC 11.95 10^3/uL H 10^3/uL (3.80-9.50) RBC 5.11 10^6/uL 10^6/uL (4.40-6.38) Hgb 15.2 g/dL g/dL (13.7-17.5) Hct 44.4 % % (40.0-51.0) MCV 86.9 fL fL (81.5-99.8) MCH 29.7 pg pg (27.9-34.1) MCHC 34.2 g/dL g/dL (32.4-36.7) RDW 13.2 % % (11.5-15.2) Plt Count 184 10^3/uL 10^3/uL (150-400) MPV 11.2 fL fL (8.7-11.7) Neut % (Auto) 78.6 % H % (39.3-74.2) Lymph % (Auto) 11.0 % L % (15.0-45.0) [place] % (Auto) 9.0 % % (4.5-13.0) Eos % (Auto) 0.8 % % (0.6-7.6) Baso % (Auto) 0.3 % % (0.3-1.7) Nucleat RBC Rel Count 0.0 % % (0.0-0.2) Absolute Neuts (auto) 9.41 10^3/uL H 10^3/uL (1.70-6.50) Absolute Lymphs (auto) 1.31 10^3/uL 10^3/uL (1.00-3.00) Absolute Monos (auto) 1.07 10^3/uL H 10^3/uL (0.30-0.80) Absolute Eos (auto) 0.09 10^3/uL 10^3/uL (0.03-0.40) Absolute Basos (auto) 0.03 10^3/uL 10^3/uL (0.02-0.10) Absolute Nucleated RBC 0.00 10^3/uL 10^3/uL (0-0.01) Immature Gran % 0.3 % % (0.0-1.1) Immature Gran # 0.04 10^3/uL 10^3/uL (0.00-0.10) Sodium Potassium Chloride Carbon Dioxide Anion Gap BUN Creatinine Estimated GFR Glucose Calcium Urine Opiates Screen Urine Barbiturates Ur Phencyclidine Scrn Ur Amphetamine Screen U Benzodiazepines Scrn [place] Urine Cocaine Screen U Marijuana (THC) Screen Ethyl Alcohol Medications Given: Discontinued Medications Acetaminophen (Tylenol) 1,000 mg PO EDNOW ONE Stop: 11/15/18 17:19 Last Admin: 11/15/18 18:11 Dose: 1,000 mg Acetaminophen (Tylenol) 1,000 mg PO EDNOW ONE Stop: 11/15/18 21:54 Last Admin: 11/15/18 21:59 Dose: 1,000 mg Carisoprodol (Soma) 350 mg PO EDNOW ONE Stop: 11/15/18 17:19 Last Admin: 11/15/18 18:11 Dose: 350 mg Carisoprodol (Soma) 350 mg PO EDNOW STA Stop: 11/16/18 01:42 Last Admin: 11/16/18 02:45 Dose: 350 mg Lorazepam (Ativan) 2 mg PO EDNOW ONE Stop: 11/16/18 00:59 Last Admin: 11/16/18 01:54 Dose: 2 mg Olanzapine (Zyprexa Zydis) 10 mg PO EDNOW ONE Stop: 11/15/18 21:54 Last Admin: 11/15/18 21:59 Dose: 10 mg Oxycodone/Acetaminophen (Percocet 5/325) 1 tab PO EDNOW ONE Stop: 11/15/18 22:40 Last Admin: 11/15/18 22:43 Dose: 1 tab Departure - Departure Disposition: Acute Care Hospital Not [facility] Clinical Impression: Severe depressed bipolar I disorder without psychotic features Condition: Good Referrals: NONE *PRIMARY CARE P,. [Primary Care Provider] - As per Instructions
[2018-11-15] MEDS ORDERED: OLANZapine DISINTEGR 10 MG TAB PO ONE (21:53)
[2018-11-15] MEDS ORDERED: OXYCODONE/APAP 5/325 TAB ONE (22:38)
[2018-11-15] MEDS ORDERED: OXYCODONE/APAP 5/325 TAB PO ONE (22:39)
[2018-11-16] MEDS ORDERED: LORazepam 1 MG TAB PO ONE (00:58)
[2018-11-16] MEDS ORDERED: CARISOPRODOL 350 MG TAB PO STA (01:41)
[2018-11-16 04:11] VITALS: BP 133/73
== END 2018-11-16 04:10 | disposition short-term general hospital (02) ==
DX: F31.4 Bipolar disorder, current episode depressed, severe, without psychotic features (principal); F41.9 Anxiety disorder, unspecified; F60.2 Antisocial personality disorder; F25.9 Schizoaffective disorder, unspecified
CPT/HCPCS: 80305; G0480